=== PATIENT | female | born 1980 | race African-American/Black ===

== ENCOUNTER 2017-02-20 17:45 | Emergency (ER) | payer MEDICAID, OTHER ==
--- NOTE | 2017-02-20 18:43 | ER Document Report ---
ED Medical Screen (RME) - General Chief Complaint: Abdominal Pain Stated Complaint: STOMACH PAIN Time Seen by Provider: 02/20/17 18:41 Mode of Arrival: Ambulatory Information source: Patient TRAVEL OUTSIDE OF THE [place] IN LAST 30 DAYS: No - HPI Patient complains to provider of: abd pain Onset: Other - pt. with 1-2 day h/o generalized abdominal pain. Denies N/V/D - Related Data Allergies/Adverse Reactions: No Known Allergies Allergy (Verified 12/31/14 08:41) Home Medications: Current Home Medications No Home Medications 02/20/17 [History] Past Medical History - Past Medical History Cardiac Medical History: Denies: Hx Atrial Fibrillation, Hx Congestive Heart Failure, Hx Heart Attack , Hx Hypercholesterolemia, Hx Hypertension Pulmonary Medical History: Denies: Hx Asthma, Hx Bronchitis, Hx COPD, Hx Pneumonia Neurological Medical History: Denies: Hx Seizures Endocrine Medical History: Denies: Hx Diabetes Mellitus Type 2 Renal/ Medical History: Denies: Hx End Stage Renal Disease, Hx Renal Insufficiency GI Medical History: Denies: Hx Gastroesophageal Reflux Disease Musculoskeltal Medical History: Denies Hx Arthritis Past Surgical History: Reports: Hx Section - x2, Hx Cholecystectomy, Hx Hysterectomy. Denies: Hx Pacemaker - Immunizations Immunizations up to date: Yes Hx Diphtheria, Pertussis, Tetanus Vaccination: Yes Physical Exam - Vital signs Vitals: Temp Pulse Resp BP Pulse Ox 98.7 F 82 18 137/55 H 95 02/20/17 17:59 02/20/17 17:59 02/20/17 17:59 02/20/17 17:59 02/20/17 17:59 Course - Vital Signs Vital signs: Temp Pulse Resp BP Pulse Ox 98.7 F 82 18 137/55 H 95 02/20/17 17:59 02/20/17 17:59 02/20/17 17:59 02/20/17 17:59 02/20/17 17:59
[2017-02-20 19:07] LABS: ABSOLUTE EOSINOPHILS # (AUTO) 0.1 10^3/uL (0.0-0.6); ABSOLUTE LYMPHOCYTES (AUTO) 1.7 10^3/uL (0.5-4.7); ABSOLUTE MONOCYTES (AUTO) 0.5 10^3/uL (0.1-1.4); ABSOLUTE NEUT (AUTO) 3.6 10^3/uL (1.7-8.2); BASOPHILS % (AUTO) 0.6 % (0-2); EOSINOPHILS % (AUTO) 2.3 % (0-6); HEMATOCRIT 39.7 % (36.0-47.0); HEMOGLOBIN 13.3 g/dL (12.0-15.5); HGB HCT DIFFERENCE 0.2; MEAN CORPUSCULAR HEMOGLOBIN 28.8 pg (27.0-33.4); MEAN CORPUSCULAR HGB CONC 33.6 g/dL (32.0-36.0); MEAN CORPUSCULAR VOLUME 86 fl (80-97); MONOCYTES % (AUTO) 8.6 % (3-13); RED BLOOD COUNT 4.64 10^6/uL (3.72-5.28); RED CELL DISTRIBUTION WIDTH 14.3 % (11.5-14.0); SEGMENTED NEUTROPHILS % (AUTO) 60.5 % (42-78); WHITE BLOOD COUNT 5.9 10^3/uL (4.0-10.5)
[2017-02-20 19:14] LABS: APPEARANCE,URINE CLEAR; BILIRUBIN,URINE NEGATIVE (NEGATIVE); GLUCOSE, URINE NEGATIVE (NEGATIVE); KETONES,URINE NEGATIVE (NEGATIVE); LEUKOCYTE ESTERASE,URINE NEGATIVE (NEGATIVE); NITRITE,URINE NEGATIVE (NEGATIVE); PROTEIN,URINE 30 mg/dL (NEGATIVE); URINE SPECIFIC GRAVITY 1.027
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
[2017-02-20 19:22] LABS: ALANINE AMINOTRANSFERASE 33 U/L (9-52); ALBUMIN 4.4 g/dL (3.5-5.0); ALKALINE PHOSPHATASE 68 U/L (38-126); ANION GAP 13 (5-19); ASPARTATE AMINO TRANSFERASE 23 U/L (14-36); BILIRUBIN,DIRECT 0.3 mg/dL (0.0-0.4); BILIRUBIN,TOTAL 0.4 mg/dL (0.2-1.3); BLOOD UREA NITROGEN 12 mg/dL (7-20); CALCIUM 9.5 mg/dL (8.4-10.2); CARBON DIOXIDE 28 mmol/L (22-30); CHLORIDE 106 mmol/L (98-107); CREATININE RESULT 1.03 mg/dL (0.52-1.25); GLUCOSE 85 mg/dL (75-110); LIPASE 92.4 U/L (23-300); POTASSIUM 4.1 mmol/L (3.6-5.0); SODIUM 146.5 mmol/L (137-145); TOTAL PROTEIN 7.2 g/dL (6.3-8.2)
[2017-02-20] MEDS ORDERED: METOCLOPRAMIDE HCL ORAL SOLN 10 MG/10 ML UDCUP PO ONE (19:26)
[2017-02-20] MEDS ORDERED: LIDOCAINE 2% VISCOUS SOLN 20 ML UDCUP PO ONE (19:26)
[2017-02-20] MEDS ORDERED: MAG HYDROX/AL HYDROX/SIMETH SUSP 30 ML UDCUP PO ONE (19:26)
--- NOTE | 2017-02-20 19:55 | RADIOLOGY REPORT (SQ) ---
EXAM DESCRIPTION: ACUTE ABDOMEN SERIES COMPLETED DATE/TIME: 02/20/2017 7:46 pm REASON FOR STUDY: abd pain COMPARISON: None. NUMBER OF VIEWS: Three views. TECHNIQUE: Frontal chest, supine abdomen and upright/decubitus abdomen radiographic images acquired. LIMITATIONS: None. FINDINGS: CHEST: Lungs clear of infiltrates. FREE AIR: None. No abnormal gas collections. BOWEL GAS PATTERN: Nonobstructive pattern. No dilated loops or air fluid levels. CALCIFICATIONS: No suspicious calcifications. HARDWARE: Multiple surgical clips are identified in the right upper quadrant. SOFT TISSUES: No gross mass or suggestion of organomegaly. BONES: No acute fracture. No worrisome bone lesions. OTHER: No other significant finding. IMPRESSION: NO RADIOGRAPHIC EVIDENCE FOR ACUTE ABDOMINAL DISEASE. TECHNICAL DOCUMENTATION: JOB ID: [id number] [employer]- All Rights Reserved
[2017-02-20 20:59] VITALS: BP 139/62
== END 2017-02-20 20:57 | disposition home or self-care (01) ==
LOC: ER 17:45
DX: R10.13 Epigastric pain (principal); K29.70 Gastritis, unspecified, without bleeding; R11.0 Nausea; Z90.49 Acquired absence of other specified parts of digestive tract; Z90.710 Acquired absence of both cervix and uterus
CPT/HCPCS: 99284; 36415; 83690; 85025; 81025; 80053; 81001; 74022; J3490

== ENCOUNTER → 2017-05-20 | Outpatient (CLI) | payer MEDICAID ==
--- NOTE | 2017-05-20 11:13 | WOMENS IMAGING REPORT ---
EXAM DESCRIPTION: U/S THYROID/ST TIS HEAD NECK COMPLETED DATE/TIME: 05/20/2017 11:03 am REASON FOR STUDY: NONTOXIC GOITER E04.9 NONTOXIC GOITER, UNSPECIFIED COMPARISON: None. TECHNIQUE: Dynamic and static horne-scale images acquired of the thyroid gland. Selected additional c olor/power Doppler images recorded. All images stored to PACS. LIMITATIONS: None. FINDINGS: RIGHT LOBE: Normal size. Homogeneous echotexture. 5 mm cystic nodule. LEFT LOBE: Normal size. Homogeneous echotexture. 5 mm cystic nodule. ISTHMUS: Normal size. Homogeneous echotexture. No cystic or solid masses. OTHER: No other significant finding. IMPRESSION: Small colloid cysts. TECHNICAL DOCUMENTATION: JOB ID: [id number] [employer]- All Rights Reserved
== END ==
LOC: WI 09:25
PROVIDERS: ATTEND Internal Medicine
DX: E04.9 Nontoxic goiter, unspecified (principal)
CPT/HCPCS: 76536

== ENCOUNTER → 2017-11-22 | Outpatient (CLI) | payer MEDICAID ==
--- NOTE | 2017-11-22 15:36 | RADIOLOGY REPORT (SQ) ---
EXAM DESCRIPTION: LUMBAR SPINE COMPLETE COMPLETED DATE/TIME: 11/22/2017 3:19 pm REASON FOR STUDY: ACUTE LOW BACK PAIN WITHOUT SCIATICA, UNSPEC BACK PAIN LATERALITY COMPARISON: None. NUMBER OF VIEWS: Five views including obliques. TECHNIQUE: AP, lateral, oblique, and sacral radiographic images acquired of the lumbar spine. LIMITATIONS: None. FINDINGS: MINERALIZATION: Normal. SEGMENTATION: Normal. No transitional anatomy. ALIGNMENT: Normal. VERTEBRAE: Maintained height. No fracture or worrisome bone lesion. DISCS: Preserved height. No significant osteophytes or end plate irregularity. POSTERIOR ELEMENTS: Pedicles and facets are intact. No pars defect or posterior arch defects. HARDWARE: None in the spine. PARASPINAL SOFT TISSUES: Normal. PELVIS: Intact as visualized. No fractures or worrisome bone lesions. SI joints intact. OTHER: No other significant finding. IMPRESSION: NORMAL 5 VIEW LUMBAR SPINE. TECHNICAL DOCUMENTATION: JOB ID: [id number] [employer]- All Rights Reserved Reading location - IP/workstation name: [email or web address]
== END ==
LOC: OD 15:00
PROVIDERS: ATTEND Family Medicine
DX: M54.5 Low back pain (principal)
CPT/HCPCS: 72110

== ENCOUNTER 2018-03-01 10:12 | Emergency (ER) | payer OTHER, MEDICAID ==
[2018-03-01] MEDS ORDERED: ONDANSETRON 4 MG TAB.RAPDIS PO ONE (10:31)
[2018-03-01] MEDS ORDERED: ACETAMINOPHEN 325 MG TABLET PO ONE (10:31)
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
[2018-03-01 11:39] VITALS: BP 149/60
== END 2018-03-01 11:41 | disposition home or self-care (01) ==
LOC: ER 10:12
DX: S43.401A Unspecified sprain of right shoulder joint, initial encounter (principal); S73.101A Unspecified sprain of right hip, initial encounter; R51 Headache; M54.89 Other dorsalgia; V49.40XA Driver injured in collision with unspecified motor vehicles in traffic accident, initial encounter; R11.0 Nausea; M16.11 Unilateral primary osteoarthritis, right hip
CPT/HCPCS: 99284; 73502; 73030; 72070; S0119

== ENCOUNTER 2018-05-30 12:54 | Emergency (ER) | payer MEDICAID, OTHER ==
[2018-05-30] MEDS ORDERED: NORMAL SALINE 1000 ML 1,000 ML IV ONE (13:26)
[2018-05-30 13:55] LABS: ABSOLUTE LYMPHOCYTES (AUTO) 1.5 10^3/uL (0.5-4.7); ABSOLUTE MONOCYTES (AUTO) 0.4 10^3/uL (0.1-1.4); ABSOLUTE NEUT (AUTO) 2.3 10^3/uL (1.7-8.2); BASOPHILS % (AUTO) 0.9 % (0-2); EOSINOPHILS % (AUTO) 1.1 % (0-6); HEMATOCRIT 40.8 % (36.0-47.0); HEMOGLOBIN 13.7 g/dL (12.0-15.5); LYMPHOCYTES % (AUTO) 34.9 % (13-45); MEAN CORPUSCULAR HEMOGLOBIN 28.4 pg (27.0-33.4); MEAN CORPUSCULAR HGB CONC 33.7 g/dL (32.0-36.0); MEAN CORPUSCULAR VOLUME 84 fl (80-97); MONOCYTES % (AUTO) 9.4 % (3-13); PLATELET COUNT 204 10^3/uL (150-450); RED BLOOD COUNT 4.83 10^6/uL (3.72-5.28); RED CELL DISTRIBUTION WIDTH 13.5 % (11.5-14.0); SEGMENTED NEUTROPHILS % (AUTO) 53.7 % (42-78); TOTAL CELLS COUNTED % (AUTO) 100 %; WHITE BLOOD COUNT 4.3 10^3/uL (4.0-10.5)
[2018-05-30 14:45] LABS: ALANINE AMINOTRANSFERASE 48 U/L (9-52); ALBUMIN 4.3 g/dL (3.5-5.0); ALKALINE PHOSPHATASE 68 U/L (38-126); ANION GAP 10 (5-19); ASPARTATE AMINO TRANSFERASE 28 U/L (14-36); BILIRUBIN,DIRECT 0.2 mg/dL (0.0-0.4); BILIRUBIN,TOTAL 0.5 mg/dL (0.2-1.3); BLOOD UREA NITROGEN 11 mg/dL (7-20); CALCIUM 9.9 mg/dL (8.4-10.2); CARBON DIOXIDE 27 mmol/L (22-30); CHLORIDE 108 mmol/L (98-107); GLUCOSE 88 mg/dL (75-110); POTASSIUM 3.9 mmol/L (3.6-5.0); TOTAL PROTEIN 6.8 g/dL (6.3-8.2)
--- NOTE | 2018-05-30 14:47 | RADIOLOGY REPORT (SQ) ---
EXAM DESCRIPTION: KUB/ABDOMEN (SINGLE VIEW) COMPLETED DATE/TIME: 05/30/2018 2:13 pm REASON FOR STUDY: Abdominal pain COMPARISON: 02/20/2017 NUMBER OF VIEWS: One view. TECHNIQUE: Supine radiographic image of the abdomen acquired. LIMITATIONS: None. FINDINGS: BOWEL GAS PATTERN: Normal bowel gas pattern. No dilated loops. CALCIFICATIONS: No suspicious calcifications. SOFT TISSUES: No gross mass or suggestion of organomegaly. HARDWARE: Surgical clips in the gallbladder fossa. BONES: No acute fracture. No worrisome bone lesions. OTHER: No other significant finding. IMPRESSION: NO RADIOGRAPHIC EVIDENCE FOR ACUTE ABDOMINAL DISEASE. TECHNICAL DOCUMENTATION: JOB ID: [id number] [employer]- All Rights Reserved Reading location - IP/workstation name: [email or web address]
--- NOTE | 2018-05-30 15:28 | ER Document Report ---
ED General - General Chief Complaint: Weakness Stated Complaint: BACK PAIN Time Seen by Provider: 05/30/18 13:25 Primary Care Provider: PEG MERCEDES DO [Primary Care Provider] - Follow up as needed TRAVEL OUTSIDE OF THE [place] IN LAST 30 DAYS: No - HPI Patient complains to provider of: Dehydrated feeling unwell Notes: Patient coming in for feeling dehydrated feeling unwell Ongoing since this morning. Patient states that she recently had a gastric sleeve placed by the doctor at [place] states that she has been eating and drinking fine denies any vomiting or diarrhea however this today felt like she was dehydrated. Patient states that she drinks water mostly no carbonated sodas. Patient upon my evaluation has been seen by a GI doctor and had labs ordered along with IV fluids. Patient states that she currently feels much better patient resting comfortably no signs of any obvious distress. Denies any chest pain headaches fevers nausea vomiting fever chills diarrhea - Related Data Allergies/Adverse Reactions: No Known Allergies Allergy (Verified 03/01/18 10:14) Past Medical History - Social History Smoking Status: Never Smoker Chew tobacco use (# tins/day): No Frequency of alcohol use: None Drug Abuse: None Family History: DM, Hyperlipidemia, Hypertension, Other - gout Patient has suicidal ideation: No Patient has homicidal ideation: No - Past Medical History Cardiac Medical History: Denies: Hx Atrial Fibrillation, Hx Congestive Heart Failure, Hx Heart Attack, Hx Hypercholesterolemia, Hx Hypertension Pulmonary Medical History: Denies: Hx Asthma, Hx Bronchitis, Hx COPD, Hx Pneumonia Neurological Medical History: Denies: Hx Seizures Endocrine Medical History: Denies: Hx Diabetes Mellitus Type 2 Renal/ Medical History: Denies: Hx End Stage Renal Disease, Hx Peritoneal Dialysis, Hx Renal Insufficiency GI Medical History: Denies: Hx Gastroesophageal Reflux Disease Musculoskeletal Medical History: Denies Hx Arthritis Psychiatric Medical History: Reports: Hx Anxiety Past Surgical History: Reports: Hx Section - x2, Hx Cholecystectomy, Hx Hysterectomy. Denies: Hx Pacemaker - Immunizations Immunizations up to date: Yes Hx Diphtheria, Pertussis, Tetanus Vaccination: Yes Review of Systems - Review of Systems Constitutional: Weakness - Feeling unwell EENT: No symptoms reported Cardiovascular: No symptoms reported Respiratory: No symptoms reported Gastrointestinal: No symptoms reported Genitourinary: No symptoms reported Female Genitourinary: No symptoms reported Musculoskeletal: No symptoms reported Skin: No symptoms reported Hematologic/Lymphatic: No symptoms reported Neurological/Psychological: No symptoms reported Physical Exam - Vital signs Vitals: Temp Pulse Resp BP Pulse Ox 98.4 F 76 12 112/63 98 05/30/18 12:59 05/30/18 12:59 05/30/18 12:59 05/30/18 12:59 05/30/18 12:59 Interpretation: Normal - General General appearance: Appears well, Alert - HEENT Head: Normocephalic, Atraumatic Eyes: Normal Pupils: PERRL - Respiratory Respiratory status: No respiratory distress Chest status: Nontender Breath sounds: Normal Chest palpation: Normal - Cardiovascular Rhythm: Regular Heart sounds: Normal auscultation Murmur: No - Abdominal Inspection: Normal Distension: No distension Bowel sounds: Normal Tenderness: Nontender Organomegaly: No organomegaly - Back Back: Normal, Nontender - Extremities General upper extremity: Normal inspection, Nontender, Normal color, Normal ROM, Normal temperature General lower extremity: Normal inspection, Nontender, Normal color, Normal ROM, Normal temperature, Normal weight bearing. No: Caryn's sign - Neurological Neuro grossly intact: Yes Cognition: Normal Orientation: AAOx4 [place] Coma Scale Eye Opening: Spontaneous [place] Coma Scale Verbal: Oriented [place] Coma Scale Motor: Obeys Commands Marifer Coma Scale Total: 15 Speech: Normal Motor strength normal: LUE, RUE, LLE, RLE Sensory: Normal - Psychological Associated symptoms: Normal affect, Normal mood - Skin Skin Temperature: Warm Skin Moisture: Dry Skin Color: Normal Course - Re-evaluation Re-evalutation: 05/30/18 16:46 labs exam does not show any critical values at this time. Patient will be discharged home to follow-up primary care physician. - Vital Signs Vital signs: Temp Pulse Resp BP Pulse Ox 98.1 F 70 18 114/62 100 05/30/18 15:45 05/30/18 15:45 05/30/18 15:45 05/30/18 15:45 05/30/18 15:45 - Laboratory Result Diagrams: 05/30/18 13:35 05/30/18 14:15 Laboratory results interpreted by me: 05/30/18 14:15 Chloride 108 H Est GFR (Non-Af Amer) 56 L Discharge - Discharge Clinical Impression: Weakness, Feeling unwell Condition: Good Disposition: HOME, SELF-CARE Instructions: Dizziness ([facility]), Weakness ([facility]) Additional Instructions: Your evaluation today does not show any critical pathology would recommend drinking plenty of fluids such as water and diet Powerade. Return to the ER if your symptoms worsen follow-up with your primary care physician as needed. Referrals: PEG MERCEDES, [Primary Care Provider] - Follow up as needed
[2018-05-30 16:17] VITALS: BP 114/62
== END 2018-05-30 15:45 | disposition home or self-care (01) ==
LOC: ER 12:54
DX: R53.1 Weakness (principal); M54.9 Dorsalgia, unspecified; E86.0 Dehydration; Z90.49 Acquired absence of other specified parts of digestive tract; Z90.710 Acquired absence of both cervix and uterus
CPT/HCPCS: 99283; 96360; 36415; 87086; 85025; 80053; 74018; J7030

== ENCOUNTER → 2018-09-06 | Outpatient (CLI) | payer MEDICAID ==
[2018-09-06 15:12] LABS: ABSOLUTE EOSINOPHILS # (AUTO) 0.1 10^3/uL (0.0-0.6); ABSOLUTE LYMPHOCYTES (AUTO) 1.6 10^3/uL (0.5-4.7); ABSOLUTE MONOCYTES (AUTO) 0.4 10^3/uL (0.1-1.4); ABSOLUTE NEUT (AUTO) 2.6 10^3/uL (1.7-8.2); BASOPHILS % (AUTO) 0.5 % (0-2); HEMATOCRIT 37.4 % (36.0-47.0); HEMOGLOBIN 12.5 g/dL (12.0-15.5); LYMPHOCYTES % (AUTO) 33.3 % (13-45); MEAN CORPUSCULAR HEMOGLOBIN 28.1 pg (27.0-33.4); MEAN CORPUSCULAR HGB CONC 33.4 g/dL (32.0-36.0); MEAN CORPUSCULAR VOLUME 84 fl (80-97); MONOCYTES % (AUTO) 8.6 % (3-13); PLATELET COUNT 210 10^3/uL (150-450); RED BLOOD COUNT 4.44 10^6/uL (3.72-5.28); RED CELL DISTRIBUTION WIDTH 14.3 % (11.5-14.0); SEGMENTED NEUTROPHILS % (AUTO) 55.6 % (42-78); TOTAL CELLS COUNTED % (AUTO) 100 %; WHITE BLOOD COUNT 4.8 10^3/uL (4.0-10.5)
[2018-09-06 15:34] LABS: ALANINE AMINOTRANSFERASE 22 U/L (9-52); ALKALINE PHOSPHATASE 61 U/L (38-126); ANION GAP 10 (5-19); ASPARTATE AMINO TRANSFERASE 21 U/L (14-36); BILIRUBIN,DIRECT 0.2 mg/dL (0.0-0.4); BILIRUBIN,TOTAL 0.6 mg/dL (0.2-1.3); BLOOD UREA NITROGEN 9 mg/dL (7-20); CALCIUM 9.8 mg/dL (8.4-10.2); CARBON DIOXIDE 30 mmol/L (22-30); CHLORIDE 105 mmol/L (98-107); GLUCOSE 78 mg/dL (75-110); SODIUM 144.9 mmol/L (137-145); TOTAL PROTEIN 6.6 g/dL (6.3-8.2)
== END ==
LOC: OD 14:40
PROVIDERS: ATTEND Nurse Practitioner Family
DX: M79.604 Pain in right leg (principal); R73.03 Prediabetes; E66.9 Obesity, unspecified
CPT/HCPCS: 36415; 80053; 82607; 84425; 85025

== ENCOUNTER → 2018-09-25 | Outpatient (CLI) | payer MEDICAID ==
[2018-09-25 15:56] LABS: CHLAM PCR NOT DETECTED (NOT DETECT)
== END ==
LOC: OD 13:11
PROVIDERS: ATTEND Nurse Practitioner Acute Care
DX: R30.0 Dysuria (principal)
CPT/HCPCS: 87086; 87088; 87186; 87491; 87591

== ENCOUNTER 2018-11-12 09:48 | Emergency (ER) | payer MEDICAID ==
--- NOTE | 2018-11-12 10:23 | ER Document Report ---
ED GI/ - General Chief Complaint: Urinary Problem Stated Complaint: PAINFUL URINATION Time Seen by Provider: 11/12/18 09:58 Primary Care Provider: JENNIFER GRAY NP [Primary Care Provider] - Follow up as needed Mode of Arrival: Ambulatory Information source: Patient Notes: 38-year-old female presented to ED for complaint of urgency frequency and burning with urination. She states it starts this morning. She has had a past partial hysterectomy that the only medical history. She states she does not smoke or drink she does smoke pot works. She is alert oriented respirations regular and unlabored speaking in full sentences. TRAVEL OUTSIDE OF THE [place] IN LAST 30 DAYS: No - HPI Patient complains to provider of: Other - Urinary frequency urgency and burning Onset: This morning Timing/Duration: Gradual Quality of pain: Burning, Pressure Severity at maximum: Mild Severity in ED: Mild Pain Level: 1 Vaginal bleeding (Compared to normal period): None Associated symptoms: Urinary frequency, Urinary urgency, Other - And was her nation Exacerbated by: Other Relieved by: Denies - Urination Similar symptoms previously: Yes Recently seen / treated by doctor: No - Related Data Allergies/Adverse Reactions: No Known Allergies Allergy (Verified 03/01/18 10:14) Past Medical History - General Information source: Patient - Social History Smoking Status: Never Smoker Frequency of alcohol use: None Drug Abuse: Marijuana Family History: DM, Hyperlipidemia, Hypertension, Other - gout Patient has suicidal ideation: No Patient has homicidal ideation: No - Past Medical History Cardiac Medical History: Reports: None Pulmonary Medical History: Reports: None EENT Medical History: Reports: None Neurological Medical History: Reports: None Endocrine Medical History: Reports: None Renal/ Medical History: Reports: None Malignancy Medical History: Reports: None GI Medical History: Reports: None Musculoskeletal Medical History: Reports None Skin Medical History: Reports None Psychiatric Medical History: Reports: Hx Anxiety Traumatic Medical History: Reports: None Infectious Medical History: Reports: None Past Surgical History: Reports: Hx Section - x2, Hx Cholecystectomy, Hx Hysterectomy - Immunizations Immunizations up to date: Yes Hx Diphtheria, Pertussis, Tetanus Vaccination: Yes Review of Systems - Review of Systems Constitutional: No symptoms reported EENT: No symptoms reported Cardiovascular: No symptoms reported Respiratory: No symptoms reported Gastrointestinal: No symptoms reported Genitourinary: Burning, Frequency, Urgency Female Genitourinary: No symptoms reported Musculoskeletal: No symptoms reported Skin: No symptoms reported Hematologic/Lymphatic: No symptoms reported Neurological/Psychological: No symptoms reported -: Yes All other systems reviewed and negative Physical Exam - Vital signs Vitals: Temp Pulse Resp BP Pulse Ox 98.1 F 67 20 134/47 H 98 11/12/18 09:55 11/12/18 09:55 11/12/18 09:55 11/12/18 09:55 11/12/18 09:55 Interpretation: Normal - General General appearance: Appears well, Alert - HEENT Head: Normocephalic, Atraumatic Eyes: Normal Pupils: PERRL - Respiratory Respiratory status: No respiratory distress Chest status: Nontender Breath sounds: Normal Chest palpation: Normal - Cardiovascular Rhythm: Regular Heart sounds: Normal auscultation Murmur: No - Abdominal Inspection: Normal Distension: No distension Bowel sounds: Normal Tenderness: Nontender Organomegaly: No organomegaly - Genitourinary Notes: Patient states it pressley every time she urinates no physical symptoms noted. - Back Back: Normal, Nontender - Extremities General upper extremity: Normal inspection, Nontender, Normal color, Normal ROM, Normal temperature General lower extremity: Normal inspection, Nontender, Normal color, Normal ROM, Normal temperature, Normal weight bearing. No: Caryn's sign - Neurological Neuro grossly intact: Yes Cognition: Normal Orientation: AAOx4 [place] Coma Scale Eye Opening: Spontaneous [place] Coma Scale Verbal: Oriented [place] Coma Scale Motor: Obeys Commands [place] Coma Scale Total: 15 Speech: Normal Motor strength normal: LUE, RUE, LLE, RLE Sensory: Normal - Psychological Associated symptoms: Normal affect, Normal mood - Skin Skin Temperature: Warm Skin Moisture: Dry Skin Color: Normal Course - Re-evaluation Re-evalutation: 11/12/18 11:25 Urine was positive for urinary tract infection. He will be sent for culture. Patient has been treated with Rocephin 1 g IM in the emergency room and discharged home with prescription for Keflex. Patient was also treated with Pyridium and a prescription for Pyridium for her discomfort. Patient was instructed to follow-up with her primary care to ensure that the UTI has cleared. - Vital Signs Vital signs: Temp Pulse Resp BP Pulse Ox 98.9 F 68 20 122/67 98 11/12/18 11:26 11/12/18 11:26 11/12/18 09:55 11/12/18 11:26 11/12/18 11:26 - Laboratory Laboratory results interpreted by me: 11/12/18 10:02 Urine Protein >=500 H Urine Blood LARGE H Urine Urobilinogen 2.0 H Ur Leukocyte Esterase MODERATE H Discharge - Discharge Clinical Impression: UTI (urinary tract infection) Qualifiers: Urinary tract infection type: acute cystitis Hematuria presence: with hematuria Qualified Code(s): N30.01 - Acute cystitis with hematuria Condition: Stable Disposition: HOME, SELF-CARE Additional Instructions: URINARY TRACT INFECTION: Your evaluation indicates that you have a urinary tract infection. This is due to germs growing in the bladder. This is a common problem. This infection usually responds quickly to antibiotics. Your antibiotic should be taken exactly as prescribed. Drink plenty of fluids -- three to four quarts a day. Occasionally, a bladder anesthetic will be prescribed to help stop the feeling of urgency until the antibiotic has a chance to clear the infection. This may cause your urine to be dark orange. Certain urine infections require a culture. If the doctor obtained a culture, the results will be back in two days. You should call to see if a change in treatment is needed. A repeat urinalysis after you finish treatment is often recommended. The physician will let you know if further testing is required. Call the doctor if you develop fever, chills, flank pain, inability to urinate, or blood in the urine. ANTIBIOTIC THERAPY: You have been given an antibiotic prescription. It's important that you take all the medication, unless instructed otherwise by your physician. Failure to complete the entire course can result in relapse of your condition. Common side effects of antibiotics include nausea, intestinal cramping, or diarrhea. Women may develop vaginal yeast infections, and babies can get yeast (thrush) in the mouth following the use of antibiotics. Contact your physician if you develop significant side effects from this medication. Allergy to this antibiotic can result in hives, wheezing, faintness, or itching. If symptoms of allergy occur, stop the medication and call the doctor. Rocephin You have been given an injection of an antibiotic called Rocephin (ceftriaxone). Sometimes the injection must be combined with antibiotic pills. For some infections, such as an uncomplicated ear infection, Rocephin provides all the antibiotic that's needed. The antibiotic will be in your body for about two days. For serious infections, we usually repeat doses of Rocephin daily. Side effects are very unusual following a shot. Women may develop vaginal yeast infections, and babies can get yeast (thrush) in the mouth following the use of antibiotics. Contact your physician if you have symptoms with this medication. Allergy to this antibiotic can result in hives, wheezing, faintness, or itching. If symptoms of allergy occur, call the doctor at once. CEPHALEXIN: The antibiotic you've been prescribed is a member of the cephalosporin class. This type of antibiotic covers a wide variety of infections, including those of the skin, lungs, and urinary tract. It's useful for staph infections. This antibiotic is slightly similar to the penicillin family. In rare cases, a person who is allergic to penicillin will also be allergic to this medication. If you have had a severe allergic reaction to penicillin, and have not taken this antibiotic since that time, notify your doctor. Antibiotics which cover many germs ("broad spectrum" antibiotics) are more likely to cause diarrhea or "yeast" infections. Women prone to vaginal yeast problems may suffer an attack after taking this antibiotic. In infants, oral thrush (white spots "stuck" on the cheek) or yeast diaper rash may result. See your doctor if these problems occur. Call at once if you develop itching, hives, shortness of breath, or lightheadedness. URINARY ANESTHETIC AGENT: You have been given a medication (Pyridium) for urinary tract discomfort. This medicine numbs the lining of the bladder and urethra, resulting in less pain, burning, and urgency. You may take it as needed, according to instructions. When the symptoms resolve, you can stop this medication (be sure to continue any other medications the doctor has given you). This medicine turns the urine a dark orange. It may stain underwear. Occasionally, it can cause nausea. Return for evaluation if there are any unexpected effects, such as itching, hives, or shortness of breath. FOLLOW-UP CARE: If you have been referred to a physician for follow-up care, call the physicians office for an appointment as you were instructed or within the next two days. If you experience worsening or a significant change in your symptoms, notify the physician immediately or return to the Emergency Department at any time for re-evaluation. Prescriptions: Cephalexin Monohydrate [Keflex 500 mg Capsule] 500 mg PO Q6H 5 Days capsule Phenazopyridine HCl [Pyridium 100 Mg Tablet] 100 mg PO TIDP PRN #14 tablet PRN Reason: Forms: Elevated Blood Pressure, Return to Work Referrals: JENNIFER GRAY NP [Primary Care Provider] - Follow up as needed
[2018-11-12 10:57] LABS: APPEARANCE,URINE TURBID; BILIRUBIN,URINE NEGATIVE (NEGATIVE); CALCIUM OXALATE CRYSTALS,URINE FEW /HPF; COLOR,URINE YELLOW; GLUCOSE, URINE NEGATIVE (NEGATIVE); KETONES,URINE NEGATIVE (NEGATIVE); LEUKOCYTE ESTERASE,URINE MODERATE (NEGATIVE); NITRITE,URINE NEGATIVE (NEGATIVE); PROTEIN,URINE >=500 mg/dL (NEGATIVE)
[2018-11-12] MEDS ORDERED: LIDOCAINE 1% INJ-PF (10 MG/ML) 30 ML SDV INJ ONE (11:17)
[2018-11-12] MEDS ORDERED: CEFTRIAXONE INJ 1000 MG VIAL IM ONE (11:17)
[2018-11-12] MEDS ORDERED: PHENAZOPYRIDINE HCL 100 MG TABLET PO ONE (11:19)
[2018-11-12 11:27] VITALS: BP 122/67
== END 2018-11-12 11:42 | disposition home or self-care (01) ==
LOC: ER 09:48
DX: N30.01 Acute cystitis with hematuria (principal)
CPT/HCPCS: 99283; 96372; 87086; 81001; J3490 ×2; J0696

== ENCOUNTER → 2019-01-09 | Outpatient (CLI) | payer MEDICAID ==
[2019-01-09 16:06] LABS: T.VAGINALIS (WET MOUNT) NO TRICHOMONAS SEEN; WBCS (WET MOUNT) 1+ WBCS SEEN; YEAST (WET MOUNT) NO YEAST SEEN
[2019-01-09 16:07] LABS: BACTERIA (WET MOUNT) 4+ BACTERIA SEEN; EPITHELIALS (WET MOUNT) 3+ EPITHELIALS SEEN
[2019-01-09 17:37] LABS: CHLAM PCR NOT DETECTED (NOT DETECT)
== END ==
LOC: LAB 16:00
PROVIDERS: ATTEND Nurse Practitioner Family
DX: N30.90 Cystitis, unspecified without hematuria (principal); R30.0 Dysuria
CPT/HCPCS: 87086; 87210; 87491; 87591

== ENCOUNTER 2019-03-05 14:49 | Emergency (ER) | payer MEDICAID ==
[2019-03-05 14:59] VITALS: BP 117/56
[2019-03-05] MEDS ORDERED: CIPROFLOXACIN HCL/DEXAMETH OTIC DROP 7.5 ML AS ONE (15:33)
--- NOTE | 2019-03-05 15:39 | ER Document Report ---
HPI - HPI Time Seen by Provider: 03/05/19 15:26 Pain Level: 3 Context: Patient is a 38-year-old female who presents emergency department with a chief complaint of left ear pain. Patient reports she is had left ear pain and drainage for about 4 days. Patient denies fever. Patient denies sore throat, runny nose or nasal congestion. Patient denies headache. Patient reports the outer ear is extremely tender to touch. - REPRODUCTIVE Reproductive: DENIES: : Past Medical History - General Information source: Patient - Social History Smoking Status: Never Smoker Frequency of alcohol use: None Drug Abuse: None Lives with: Family Family History: DM, Hyperlipidemia, Hypertension, Other - gout Patient has suicidal ideation: No Patient has homicidal ideation: No - Past Medical History Cardiac Medical History: Reports: None Denies: Hx Atrial Fibrillation, Hx Congestive Heart Failure, Hx Heart Attack, Hx Hypercholesterolemia, Hx Hypertension Pulmonary Medical History: Reports: None Denies: Hx Asthma, Hx Bronchitis, Hx COPD, Hx Pneumonia EENT Medical History: Reports: None Neurological Medical History: Reports: None. Denies: Hx Seizures Endocrine Medical History: Reports: None. Denies: Hx Diabetes Mellitus Type 2 Renal/ Medical History: Reports: None. Denies: Hx End Stage Renal Disease, Hx Peritoneal Dialysis, Hx Renal Insufficiency Malignancy Medical History: Reports: None GI Medical History: Reports: None. Denies: Hx Gastroesophageal Reflux Disease Musculoskeletal Medical History: Reports None, Denies Hx Arthritis Psychiatric Medical History: Reports: Hx Anxiety Past Surgical History: Reports: Hx Section - x2, Hx Cholecystectomy, Hx Hysterectomy. Denies: Hx Pacemaker - Immunizations Immunizations up to date: Yes Hx Diphtheria, Pertussis, Tetanus Vaccination: Yes Vertical Provider Document - CONSTITUTIONAL Agree With Documented VS: Yes Exam Limitations: No Limitations General Appearance: No Apparent Distress - INFECTION CONTROL TRAVEL OUTSIDE OF THE [place] IN LAST 30 DAYS: No - HEENT HEENT: Atraumatic, Normocephalic, PERRLA Notes: Right external ear unremarkable without edema, tenderness to the pinna, tragus or mastoid. TM is slightly erythematous without bulging. Left ear does reveal tenderness to the tragus. No mastoid tenderness. The external ear canal is edematous, unable to visualize the TM. - NECK Neck: Normal Inspection - RESPIRATORY Respiratory: Breath Sounds Normal, No Respiratory Distress - CARDIOVASCULAR Cardiovascular: Regular Rate, Regular Rhythm - GI/ABDOMEN Gastrointestinal: Abdomen Soft, Abdomen Non-Tender, Normal Bowel Sounds - BACK Back: Normal Inspection - MUSCULOSKELETAL/EXTREMETIES Musculoskeletal/Extremeties: FROM, Non-Tender - NEURO Level of Consciousness: Awake, Alert, Appropriate - DERM Integumentary: Warm, Dry, No Rash Course - Re-evaluation Re-evalutation: 03/05/19 15:39 We will treat the patient for an otitis externa. We will place an ear wick and due to the edema within the ear canal. 03/05/19 15:58 Ear wick placed into left ear canal. Patient given first dose of antibiotic drops here in the emergency department. Patient instructed to use 4 drops in the left ear twice a day for 1 week. - Vital Signs Vital signs: Temp Pulse Resp BP Pulse Ox 97.9 F 76 20 117/56 L 100 03/05/19 14:53 03/05/19 14:53 03/05/19 14:53 03/05/19 14:53 03/05/19 14:53 Discharge - Discharge Clinical Impression: Otitis externa Qualifiers: Otitis externa type: unspecified type Chronicity: acute Laterality: left Qualified Code(s): H60.502 - Unspecified acute noninfective otitis externa, left ear Condition: Stable Disposition: HOME, SELF-CARE Additional Instructions: *Today was seen in emergency department for left ear pain. You do have an otitis externa which is an infection of the outer ear canal. You have had a ear wick placed into your ear to help absorb the medication. This will fall out on its own. This tends to fall out when the swelling has improved. Once it falls out typically do not need to have the ear wick replaced. Please use the antibiotic drops as prescribed which is 4 drops to the left ear twice a day for 1 week. Take Tylenol and ibuprofen as needed for pain. Please return to the emergency department if you develop fever, increasing swelling, severe headache, stiff neck or decrease in hearing. Otitis Externa You have otitis externa -- an infection of the outer ear canal. This can be very painful. It's sometimes called "swimmer's ear," because it often occurs after prolonged water exposure. Many things, such as earwax and dirt in the ear, can contribute to it. The usual treatment is antibiotic/antiinflammatory ear drops. Occasionally, a wick will be placed in the ear to draw in the medicine. If the infection is severe, an oral antibiotic may be prescribed. Pain medication is often needed. Avoid getting water in the ear. Outer ear infections often take longer to heal than you might expect. Some tenderness and ache in the ear may persist for about two weeks. See your physician if you fail to improve as expected. Call the doctor at once if you develop fever, increasing swelling (particularly if it makes your ear "poke out"), severe headache, stiff neck, or decreased hearing. Forms: Return to Work Referrals: [employer] [Primary Care Provider] - Follow up as needed
== END 2019-03-05 15:57 | disposition home or self-care (01) ==
LOC: ER 14:49
DX: H60.502 Unspecified acute noninfective otitis externa, left ear (principal); H92.02 Otalgia, left ear; H92.12 Otorrhea, left ear
CPT/HCPCS: 99282; J3490

== ENCOUNTER → 2019-09-17 | Outpatient (CLI) | payer MEDICAID ==
[2019-09-17 10:30] LABS: ABSOLUTE EOSINOPHILS # (AUTO) 0.1 10^3/uL (0.0-0.6); ABSOLUTE LYMPHOCYTES (AUTO) 0.9 10^3/uL (0.5-4.7); ABSOLUTE MONOCYTES (AUTO) 0.3 10^3/uL (0.1-1.4); ABSOLUTE NEUT (AUTO) 2.5 10^3/uL (1.7-8.2); BASOPHILS % (AUTO) 0.7 % (0-2); EOSINOPHILS % (AUTO) 1.5 % (0-6); HEMATOCRIT 38.5 % (36.0-47.0); HEMOGLOBIN 13.3 g/dL (12.0-15.5); MEAN CORPUSCULAR HEMOGLOBIN 29.6 pg (27.0-33.4); MEAN CORPUSCULAR HGB CONC 34.6 g/dL (32.0-36.0); MEAN CORPUSCULAR VOLUME 85 fl (80-97); MONOCYTES % (AUTO) 8.3 % (3-13); PLATELET COUNT 193 10^3/uL (150-450); RED CELL DISTRIBUTION WIDTH 14.1 % (11.5-14.0); SEGMENTED NEUTROPHILS % (AUTO) 66.5 % (42-78); TOTAL CELLS COUNTED % (AUTO) 100 %; WHITE BLOOD COUNT 3.8 10^3/uL (4.0-10.5)
[2019-09-17 10:35] LABS: APPEARANCE,URINE SLIGHTLY-CLOUDY; BILIRUBIN,URINE NEGATIVE (NEGATIVE); COLOR,URINE YELLOW; GLUCOSE, URINE NEGATIVE (NEGATIVE); KETONES,URINE NEGATIVE (NEGATIVE); PROTEIN,URINE NEGATIVE (NEGATIVE)
[2019-09-17 10:43] LABS: INTERNATIONAL RATION (INR) 1.08
[2019-09-17 10:44] LABS: PARTIAL THROMBOPLASTIN TIME 29.8 SEC (23.5-35.8)
[2019-09-17 10:46] LABS: ALBUMIN 3.9 g/dL (3.5-5.0); ALKALINE PHOSPHATASE 60 U/L (38-126); ASPARTATE AMINO TRANSFERASE 19 U/L (14-36); BILIRUBIN,TOTAL 0.7 mg/dL (0.2-1.3); BLOOD UREA NITROGEN 14 mg/dL (7-20); CALCIUM 9.5 mg/dL (8.4-10.2); GLUCOSE 87 mg/dL (75-110); POTASSIUM 4.2 mmol/L (3.6-5.0); TOTAL PROTEIN 6.6 g/dL (6.3-8.2)
[2019-09-17 10:51] LABS: CARBON DIOXIDE 30 mmol/L (22-30); CHLORIDE 106 mmol/L (98-107)
[2019-09-17 10:52] LABS: ANION GAP 2 (5-19)
== END ==
LOC: OD 09:38
DX: Z01.812 Encounter for preprocedural laboratory examination (principal)
CPT/HCPCS: 36415; 80053; 81001; 84703; 85025; 85610; 85730

== ENCOUNTER 2019-10-29 20:46 | Emergency (ER) | payer MEDICAID ==
--- NOTE | 2019-10-29 21:40 | ER Document Report ---
ED Medical Screen (RME) - General Stated Complaint: ABDOMINAL AND BACK PAIN Time Seen by Provider: 10/29/19 21:33 Primary Care Provider: ROBLES JOSEPH [Primary Care Provider] - Follow up as needed Notes: Patient is a 39-year-old female who presents the emergency department with a chief complaint of abdominal pain. Patient states that she had a tummy tuck on October 16. Patient was instructed to take out her drain from her umbilical area when she had less than 20 cc in the bulb. Exam: Incision noted to umbilicus and lower abdomen. Slight tenderness noted. I have greeted and performed a rapid initial assessment of this patient. A comprehensive ED assessment and evaluation of the patient, analysis of test results and completion of medical decision making process will be conducted by an additional ED providers. TRAVEL OUTSIDE OF THE [place] IN LAST 30 DAYS: No - Related Data Allergies/Adverse Reactions: No Known Allergies Allergy (Verified 03/01/18 10:14) Past Medical History - Past Medical History Cardiac Medical History: Denies: Hx Atrial Fibrillation, Hx Congestive Heart Failure, Hx Heart Attack, Hx Hypercholesterolemia, Hx Hypertension Pulmonary Medical History: Denies: Hx Asthma, Hx Bronchitis, Hx COPD, Hx Pneumonia Neurological Medical History: Denies: Hx Seizures Endocrine Medical History: Denies: Hx Diabetes Mellitus Type 2 Renal/ Medical History: Denies: Hx End Stage Renal Disease, Hx Peritoneal Dialysis, Hx Renal Insufficiency GI Medical History: Denies: Hx Gastroesophageal Reflux Disease Musculoskeltal Medical History: Denies Hx Arthritis Psychiatric Medical History: Reports: Hx Anxiety Past Surgical History: Reports: Hx Section - x2, Hx Cholecystectomy, Hx Hysterectomy. Denies: Hx Pacemaker - Immunizations Immunizations up to date: Yes Hx Diphtheria, Pertussis, Tetanus Vaccination: Yes Physical Exam - Vital signs Vitals: Temp Pulse Resp BP Pulse Ox 98.9 F 89 20 127/63 H 100 10/29/19 21:05 10/29/19 21:05 10/29/19 21:05 10/29/19 21:05 10/29/19 21:05 Course - Vital Signs Vital signs: Temp Pulse Resp BP Pulse Ox 98.9 F 89 20 127/63 H 100 10/29/19 21:05 10/29/19 21:05 10/29/19 21:05 10/29/19 21:05 10/29/19 21:05 Doctor's Discharge - Discharge Referrals: OPAL,NO [Primary Care Provider] - Follow up as needed
[2019-10-29 22:14] LABS: ABSOLUTE EOSINOPHILS # (AUTO) 0.2 10^3/uL (0.0-0.6); ABSOLUTE LYMPHOCYTES (AUTO) 2.2 10^3/uL (0.5-4.7); ABSOLUTE MONOCYTES (AUTO) 0.4 10^3/uL (0.1-1.4); ABSOLUTE NEUT (AUTO) 2.6 10^3/uL (1.7-8.2); BASOPHILS % (AUTO) 0.7 % (0-2); EOSINOPHILS % (AUTO) 3.3 % (0-6); HEMATOCRIT 32.8 % (36.0-47.0); LYMPHOCYTES % (AUTO) 40.2 % (13-45); MEAN CORPUSCULAR HEMOGLOBIN 29.5 pg (27.0-33.4); MEAN CORPUSCULAR HGB CONC 33.4 g/dL (32.0-36.0); MEAN CORPUSCULAR VOLUME 88 fl (80-97); MONOCYTES % (AUTO) 7.7 % (3-13); PLATELET COUNT 366 10^3/uL (150-450); RED BLOOD COUNT 3.71 10^6/uL (3.72-5.28); RED CELL DISTRIBUTION WIDTH 15.4 % (11.5-14.0); SEGMENTED NEUTROPHILS % (AUTO) 48.1 % (42-78); TOTAL CELLS COUNTED % (AUTO) 100 %; WHITE BLOOD COUNT 5.4 10^3/uL (4.0-10.5)
[2019-10-29 22:16] LABS: APPEARANCE,URINE SLIGHTLY-CLOUDY; BILIRUBIN,URINE NEGATIVE (NEGATIVE); COLOR,URINE YELLOW; GLUCOSE, URINE NEGATIVE (NEGATIVE); KETONES,URINE NEGATIVE (NEGATIVE); PROTEIN,URINE 30 mg/dL (NEGATIVE); URINE SPECIFIC GRAVITY 1.033
[2019-10-29 22:34] LABS: ALBUMIN 3.9 g/dL (3.5-5.0); ALKALINE PHOSPHATASE 48 U/L (38-126); ANION GAP 5 (5-19); ASPARTATE AMINO TRANSFERASE 20 U/L (14-36); BILIRUBIN,TOTAL 0.5 mg/dL (0.2-1.3); BLOOD UREA NITROGEN 14 mg/dL (7-20); CALCIUM 8.9 mg/dL (8.4-10.2); CARBON DIOXIDE 29 mmol/L (22-30); CHLORIDE 105 mmol/L (98-107); GLUCOSE 84 mg/dL (75-110); POTASSIUM 4.2 mmol/L (3.6-5.0); TOTAL PROTEIN 6.7 g/dL (6.3-8.2)
--- NOTE | 2019-10-30 05:31 | ER Document Report ---
ED General - General Chief Complaint: Abdominal Swelling Stated Complaint: ABDOMINAL AND BACK PAIN Time Seen by Provider: 10/29/19 21:33 Primary Care Provider: ROBLES JOSEPH [Primary Care Provider] - Follow up as needed INOCENCIO WINTERS MD [ACTIVE STAFF] - Follow up as needed JAQUELIN BAUTISTA MD [ACTIVE STAFF] - Follow up as needed TRAVEL OUTSIDE OF THE [place] IN LAST 30 DAYS: No - HPI Notes: 39-year-old female no significant medical history presents with complaints of fluid in belly 9 days after tummy tuck. Surgery was performed by in [place]. patient has otherwise been improving since surgery, has had decreasing pain, and generally feels well. Patient began noticing that as she was healing she still had fluid in her lower abdomen bilaterally. Patient denies any i ncreasing pain, focal swelling, fever, vomiting, diarrhea, constipation, melena, bright red blood per rectum, urinary symptoms. Has not followed up with surgeon since surgery - Related Data Allergies/Adverse Reactions: No Known Allergies Allergy (Verified 03/01/18 10:14) Past Medical History - General Information source: Patient - Social History Smoking Status: Never Smoker Family History: DM, Hyperlipidemia, Hypertension, Other - gout Patient has homicidal ideation: No - Past Medical History Cardiac Medical History: Denies: Hx Atrial Fibrillation, Hx Congestive Heart Failure, Hx Heart Attack, Hx Hypercholesterolemia, Hx Hypertension Pulmonary Medical History: Denies: Hx Asthma, Hx Bronchitis, Hx COPD, Hx Pneumonia Neurological Medical History: Denies: Hx Seizures Endocrine Medical History: Denies: Hx Diabetes Mellitus Type 2 Renal/ Medical History: Denies: Hx End Stage Renal Disease, Hx Peritoneal Dialysis, Hx Renal Insufficiency GI Medical History: Denies: Hx Gastroesophageal Reflux Disease Musculoskeletal Medical History: Denies Hx Arthritis Psychiatric Medical History: Reports: Hx Anxiety Past Surgical History: Reports: Hx Section - x2, Hx Cholecystectomy, Hx Hysterectomy. Denies: Hx Pacemaker - Immunizations Immunizations up to date: Yes Hx Diphtheria, Pertussis, Tetanus Vaccination: Yes Review of Systems - Review of Systems Notes: REVIEW OF SYSTEMS: CONSTITUTIONAL : Denies fever, chills, or sweats. EENT: Denies recent cold/sinus symptoms, denies throat pain CARDIOVASCULAR: Denies chest pain, LASHON RESPIRATORY: Denies cough, denies shortness of breath. GASTROINTESTINAL: Denies abdominal pain, nausea/vomiting. GENITOURINARY: Denies difficulty urinating, painful urination. FEMALE GENITOURINARY: Denies abnormal vaginal bleeding, vaginal discharge. MUSCULOSKELETAL: Denies neck pain, back pain. SKIN: Denies rash or skin lesions. HEMATOLOGIC : Denies easy bruising or bleeding. LYMPHATIC: Denies swollen, enlarged glands. NEUROLOGICAL: Denies headache, denies change in gait. PSYCHIATRIC: Denies anxiety or stress or depression. Physical Exam - Vital signs Vitals: Temp Pulse Resp BP Pulse Ox 98.9 F 89 20 127/63 H 100 10/29/19 21:05 10/29/19 21:05 10/29/19 21:05 10/29/19 21:05 10/29/19 21:05 - Notes Notes: PHYSICAL EXAMINATION: GENERAL: Well-appearing, well-nourished and in no acute distress. HEAD: Atraumatic, normocephalic. EYES: Pupils equal round and appropriate constriction, sclera anicteric, conjunctiva are normal. ENT: nares patent, moist mucous membranes. NECK: Normal range of motion, supple without lymphadenopathy LUNGS: Normal respiratory rate, normal respiratory effort HEART: Regular rate, no JVD ABDOMEN: Soft, very mild diffuse abdominal tenderness proportionate to postop status, patient has well healing surgical incision transversely across lower abdomen which is nontender and has no redness or discharge, patient has small fluid wave across lower abdomen without any focal tenderness EXTREMITIES: Normal range of motion, no pitting or edema. No cyanosis. NEUROLOGICAL: Awake, alert, conversing appropriately, moves all extremities spontaneously. PSYCH: Normal mood, normal affect. SKIN: Warm, Dry, normal turgor, no rashes or lesions noted. Course - Re-evaluation Re-evalutation: 10/30/19 05:36 My evaluation the patient was delayed by patient not being placed in the room until approximately 5:15 AM today. patient's swelling in her abdomen is consistent with what would be expected from abdominoplasty less than 2 weeks postop. Patient was operated on in [place] so did not have surgical drains placed and the swelling is only able to be reduced by bodies reabsorption thus slower than drainage. There are no signs of infection and patient surgical incision is well healing. Patient has no systemic symptoms, obtained basic labs which were normal aside from mild anemia which would be expected postop. Patient had slight blood in urine, gave patient a copy of all results to follow-up with PCP. Gave patient information for a plastic surgeon in this area to follow-up with. I gave patient extensive return to ED precautions which she demonstrated understanding of. Patient ready for discharge. - Vital Signs Vital signs: Temp Pulse Resp BP Pulse Ox 98.1 F 57 L 18 106/37 L 100 10/30/19 04:30 10/30/19 04:30 10/30/19 04:30 10/30/19 04:30 10/30/19 04:30 - Laboratory Result Diagrams: 10/29/19 21:57 10/29/19 21:57 Laboratory results interpreted by me: 10/29/19 10/29/19 21:57 21:57 RBC 3.71 L Hgb 11.0 L Hct 32.8 L RDW 15.4 H Urine Protein 30 H Urine Blood SMALL H Urine Urobilinogen 4.0 H Discharge - Discharge Clinical Impression: Postoperative edema Disposition: HOME, SELF-CARE Additional Instructions: AFTER SURGERY Activity: Slowly increase your activity. Be sure to get up and walk every few hours or so to prevent blood clot formation. Do not lift heavy items greater than 10 pounds or participate in strenuous activity for at least 4 weeks. Convalescent leave for 21 days starting today followed by light duty for 21 days. A light duty chit will be given to you at your follow up appointment. Wound Care: Always wash your hands before and after touching near your incision site. Do not soak in a bathtub, go swimming or submerge in water for at least 2 weeks. You may take a shower after the second postoperative day. A small amount of drainage from the incision is normal. If the dressing is soaked with blood, call the General Surgery clinic. A small amount of drainage from the incision is normal. If the dressing is soaked with blood, call your surgeon. If you have Steri-strips in place, they will fall off in 7 to 10 days. If you have a glue-like covering over the incision, allow the glue to flake off on its own. If you have a dressing covering your incision, you may remove your dressing after two days and leave it open to the air. If you have packing inside your wound. Remove the packing in 24 hours and change the dressing as instructed by your surgeon daily. Avoid wearing tight or rough clothing. It may rub against your incisions and make it harder for them to heal. Protect the new skin, especially from the sun. The sun can burn and cause darker scarring. Your scar will heal in about 4 to 6 weeks and will become softer and continue to fade over the next year. Bowel Movements: Avoid straining with bowel movements by increasing the fiber in your diet w ith high- fiber foods or [id number] medicines (like Metamucil and Fibercon). Be sure you are drinking 8 to 10 glasses of water each day. Be sure to also take the Colace as prescribed to prevent constipation from taking narcotics. Contact your surgeon if you have: Pain that will not go away Pain that gets worse A fever of more than 100.4F Repeated vomiting Swelling, redness, bleeding, or foul- smelling drainage from your wound site Strong or continuous abdominal pain or swelling of your abdomen No bowel movement by 3 days after the operation The fluid in your belly is normal for being a week and a half out from a major surgery and should gradually start to improve. Follow-up with plastic surgeon Dr. Bautista within 1 week. Follow-up with him sooner or return to the emergency department immediately if you have any of the above symptoms. You had a small amount of blood in your urine which you should follow-up with your primary doctor as it could be a sign of a dangerous condition such as cancer. Referrals: OPAL,ROBLES [Primary Care Provider] - Follow up as needed INOCENCIO WINTERS MD [ACTIVE STAFF] - Follow up as needed JAQUELIN BAUTISTA MD [ACTIVE STAFF] - Follow up as needed
[2019-10-30 05:44] VITALS: BP 110/40
== END 2019-10-30 05:42 | disposition home or self-care (01) ==
LOC: ER 20:46
DX: R60.9 Edema, unspecified (principal); R19.00 Intra-abdominal and pelvic swelling, mass and lump, unspecified site; R10.9 Unspecified abdominal pain; M54.9 Dorsalgia, unspecified; R10.31 Right lower quadrant pain; R10.32 Left lower quadrant pain; Z98.890 Other specified postprocedural states
CPT/HCPCS: 36415; 80053; 81001; 85025; 99284

== ENCOUNTER 2020-01-24 14:36 | Emergency (ER) | payer MEDICAID ==
--- NOTE | 2020-01-24 14:52 | ER Document Report ---
HPI - HPI Time Seen by Provider: 01/24/20 14:49 Notes: 39-year-old female patient presents the emergency department chief complaint of dysuria and urinary urgency. Patient reports history of UTIs in the past, states this feels very similar. She states that she does not have any fevers, chills, nausea, vomiting or diarrhea. - ROS Systems Reviewed and Negative: Yes All other systems reviewed and negative - URINARY Urinary: REPORTS: Dysuria, Urgency, Frequency - REPRODUCTIVE Reproductive: DENIES: : Past Medical History - General Information source: Patient - Social History Smoking Status: Never Smoker Family History: DM, Hyperlipidemia, Hypertension, Other - gout - Past Medical History Cardiac Medical History: Denies: Hx Atrial Fibrillation, Hx Congestive Heart Failure, Hx Heart Attack, Hx Hypercholesterolemia, Hx Hypertension Pulmonary Medical History: Denies: Hx Asthma, Hx Bronchitis, Hx COPD, Hx Pneumonia Neurological Medical History: Denies: Hx Seizures Endocrine Medical History: Denies: Hx Diabetes Mellitus Type 2 Renal/ Medical History: Denies: Hx End Stage Renal Disease, Hx Peritoneal Dialysis, Hx Renal Insufficiency GI Medical History: Denies: Hx Gastroesophageal Reflux Disease Musculoskeletal Medical History: Denies Hx Arthritis Psychiatric Medical History: Reports: Hx Anxiety Past Surgical History: Reports: Hx Section - x2, Hx Cholecystectomy, Hx Hysterectomy. Denies: Hx Pacemaker - Immunizations Immunizations up to date: Yes Hx Diphtheria, Pertussis, Tetanus Vaccination: Yes Vertical Provider Document - CONSTITUTIONAL Notes: PHYSICAL EXAMINATION: GENERAL: Well-appearing, well-nourished and in no acute distress. HEAD: Atraumatic, normocephalic. EYES: Pupils equal round extraocular movements intact, conjunctiva are normal. ENT: Nares patent NECK: Normal range of motion LUNGS: No respiratory distress Abdomen: Abdomen soft, nontender. No CVA tenderness. Musculoskeletal: Normal range of motion NEUROLOGICAL: Normal speech, normal gait. PSYCH: Normal mood, normal affect. SKIN: Warm, Dry, normal turgor, no rashes or lesions noted. - INFECTION CONTROL TRAVEL OUTSIDE OF THE [place] IN LAST 30 DAYS: No Course - Re-evaluation Re-evalutation: Urinalysis consistent with urinary tract infection. Patient will be prescribed antibiotics. Urine culture pending. - Vital Signs Vital signs: Temp Pulse Resp BP Pulse Ox 98.3 F 68 20 129/50 H 100 01/24/20 14:47 01/24/20 14:47 01/24/20 14:47 01/24/20 14:47 01/24/20 14:47 Discharge - Discharge Clinical Impression: Urinary tract infection Qualifiers: Urinary tract infection type: site unspecified Hematuria presence: with hematuria Qualified Code(s): N39.0 - Urinary tract infection, site not specified Condition: Stable Disposition: HOME, SELF-CARE Additional Instructions: Your urine shows findings consistent with a urinary tract infection. Please take all the antibiotics as directed even if your symptoms have improved. Please follow-up with your primary care physician as needed. Return to emergency room if you develop fever >101F, persistent vomiting, become lethargic, have severe pain in your sides, or any other symptoms that are concerning to you. One of the medications we gave you here in the emergency department will help with the pain with urination but it will turn your urine bright orange, do not be alarmed by this Prescriptions: Cephalexin [Keflex] 500 mg PO BID #14 capsule Forms: Return to Work Referrals: PEG MERCEDES DO [Primary Care Provider] - Follow up as needed
[2020-01-24 15:33] LABS: APPEARANCE,URINE SLIGHTLY-CLOUDY; BILIRUBIN,URINE NEGATIVE (NEGATIVE); COLOR,URINE YELLOW; GLUCOSE, URINE NEGATIVE (NEGATIVE); KETONES,URINE NEGATIVE (NEGATIVE); LEUKOCYTE ESTERASE,URINE MODERATE (NEGATIVE); NITRITE,URINE NEGATIVE (NEGATIVE); PROTEIN,URINE 100 mg/dL (NEGATIVE)
[2020-01-24] MEDS ORDERED: PHENAZOPYRIDINE HCL 200 MG TABLET PO ONE (15:46)
[2020-01-24] MEDS ORDERED: CEPHALEXIN 500 MG CAPSULE PO ONE (15:46)
[2020-01-24 16:15] VITALS: BP 117/51
== END 2020-01-24 16:15 | disposition home or self-care (01) ==
LOC: ER 14:36
DX: N39.0 Urinary tract infection, site not specified (principal); R31.9 Hematuria, unspecified
CPT/HCPCS: 99283; 87086; 81025; 87088; 81001; 87186; J3490

== ENCOUNTER 2020-04-27 17:56 | Emergency (ER) | payer MEDICAID ==
[2020-04-27 19:17] VITALS: BP 124/51
[2020-04-27 20:57] LABS: A TYPE INFLUENZA AG NEGATIVE (NEGATIVE); B INFLUENZA AG NEGATIVE (NEGATIVE)
--- NOTE | 2020-04-27 21:34 | ER Document Report ---
HPI - HPI Time Seen by Provider: 04/27/20 19:13 Context: Patient is a 39-year-old female who presents to the emergency department with a chief complaint of a sore throat. States her sore throat started 2 days ago.denies any fever, body aches, or chills. - ROS Systems Reviewed and Negative: Yes All other systems reviewed and negative - CONSTITUTIONAL Constitutional: DENIES: Fever, Chills - EENT EENT: REPORTS: Sore Throat. DENIES: Ear Pain, Nasal Drainage-Clear, Nasal Drainage-Purulent, Congestion - RESPIRATORY Respiratory: DENIES: Trouble Breathing, Coughing - REPRODUCTIVE Reproductive: DENIES: : - MUSCULOSKELETAL Musculoskeletal: DENIES: Extremity pain - DERM Skin Color: Normal Skin Problems: None Past Medical History - General Information source: Patient - Social History Smoking Status: Unknown if Ever Smoked Family History: DM, Hyperlipidemia, Hypertension, Other - gout - Past Medical History Cardiac Medical History: Denies: Hx Atrial Fibrillation, Hx Congestive Heart Failure, Hx Heart Attack, Hx Hypercholesterolemia, Hx Hypertension Pulmonary Medical History: Denies: Hx Asthma, Hx Bronchitis, Hx COPD, Hx Pneumonia Neurological Medical History: Denies: Hx Seizures Endocrine Medical History: Denies: Hx Diabetes Mellitus Type 2 Renal/ Medical History: Denies: Hx End Stage Renal Disease, Hx Peritoneal Dialysis, Hx Renal Insufficiency GI Medical History: Denies: Hx Gastroesophageal Reflux Disease Musculoskeletal Medical History: Denies Hx Arthritis Psychiatric Medical History: Reports: Hx Anxiety Past Surgical History: Reports: Hx Abdominal Surgery - tummy tuck, sleeve, Hx Section - x2, Hx Cholecystectomy, Hx Hysterectomy. Denies: Hx Pacemaker - Immunizations Immunizations up to date: Yes Hx Diphtheria, Pertussis, Tetanus Vaccination: Yes Vertical Provider Document - CONSTITUTIONAL Agree With Documented VS: Yes Exam Limitations: No Limitations - INFECTION CONTROL TRAVEL OUTSIDE OF THE [place] IN LAST 30 DAYS: No - HEENT HEENT: Atraumatic, Normocephalic, PERRLA, Pharyngeal Tenderness, Pharyngeal Erythema. negative: Pharyngeal Exudate - RESPIRATORY Respiratory: Breath Sounds Normal, No Respiratory Distress - CARDIOVASCULAR Cardiovascular: Regular Rate, Regular Rhythm Pulses: Normal: Radial - MUSCULOSKELETAL/EXTREMETIES Musculoskeletal/Extremeties: FROM - NEURO Level of Consciousness: Awake, Alert, Appropriate - DERM Integumentary: Warm, Dry, No Rash Course - Re-evaluation Re-evalutation: 04/27/20 Rapid strep and influenza tests are negative. Uvula is midline. There is a slight erythema. No evidence of a peritonsillar abscess. Airway is patent. The patient was evaluated during the global COVID-19 pandemic and that diagnosis was suspected/considered upon their initial presentation. Their evaluation, treatment and testing was consistent with current guidelines for patients who present with complaints or symptoms that may be related to COVID-19. Follow-up precautions were given. Verbal discharge instructions were given to the patient. They verbalized understanding. They are stable for discharge. - Vital Signs Vital signs: Temp Pulse Resp BP Pulse Ox 98.9 F 72 20 124/51 L 100 04/27/20 19:16 04/27/20 19:16 04/27/20 19:16 04/27/20 19:16 04/27/20 19:16 - Laboratory Results Critical Laboratory Results Reviewed: No Critical Results - Radiology Results Critical Radiology Results Reviewed: No Critical Results Discharge - Discharge Clinical Impression: Sore throat, Person under investigation for COVID-19 Condition: Stable Disposition: HOME, SELF-CARE Instructions: Sore Throat ([facility]) Additional Instructions: As a person under investigation for COVID-19, the [place] Department of Health and Human Services (division on public health) advises you to adhere to the following guidance until your test results are reported to you. If your test result is positive, you will receive additional information from your provider and your local health department at that time. Remain at home until you are cleared by the health provider or public health authorities. Keep a log of visitors to your home, notify any visitors to your home of your isolation status. If you plan to move to a new address or leave the [facility], notify the local health department in your County. Call your Doctor or seek care if you have an urgent medical need. Before seeking medical care, call him to get instructions from the provider before arriving at the medical office, clinic, or hospital. Notify them that you are being tested for the virus (COVID-19) so that arrangements can be made, as necessary, to prevent transmission to others in the healthcare setting. Next, notify the local health department in your [facility]. Referrals: PEG MERCEDES, [Primary Care Provider] - Follow up as needed
--- OUTSIDE RECORDS SUMMARY | 2020-04-30 09:15 | XMS REPORT ---
:1980 Author Organization [facility] Address [facility] [address] [place] [address] Care Team Providers Name Role Phone UNASSIGNED, DOCTOR Primary Care Physician Unavailable Hailey Attending Clinician Unavailable LU SHARIF Attending Clinician Unavailable Radha Attending Clinician Unavailable Endy Attending Clinician Unavailable LU SHARIF Admitting Clinician Unavailable Allergies, Adverse Reactions, Alerts This patient has no known allergies or adverse reactions. Medications Ordered Filled Start Stop Current Ordering Indication Dosage Frequency Signature Comments Components Medication Medication Date Date Medication? Clinician (SIG) Name Name ondansetron Yes [id number] 4mg Q8H Take 1 Ta b ODT 3-06 by mouth (ZOFRAN-ODT 00:00: every 8 ) 4 mg Oral 00 hours as Tablet, needed for Rapid Nausea. Dissolve lansoprazol 2019- No 30mg QD 30 mg, e (PREVACID 05-0306 Oral, SOLUTAB) 06:00: 05:59 DAILY AT dispersible 00 :00 0600, tablet 30 First dose mg on Tue05/03/18 at 0600, For [address] karoline tab on tongue; allow to dissolve.& nbsp;&nbsp ;Do NOT swallow whole or chew.&nbsp ; May place tab in syringe to be used to give drug via NG tube.&nbsp ; Add 20 ml of water.&nbs p;&nbs p;Swirl and dissolve.& nbsp;&nbsp ;Flush tube wtih 10 ml water after administra tion.&nbsp ; Raghu e on an empty stomach at least 30 minutes before food.
iohexol 2019- No 50mL 17,500 mg (OMNIPAQUE) 1-29 01-30 (50 mL), 350 mg 09:37: 09:36 Oral, RAD iodine/mL 05 :05 ONCE, solution Other, 17,500 mg Starting Tue05/02/18 at 0937, For 1 day
For oral administra tion, mix 30 mL contrast with 900 mL water or other patient-pr eferred beverage, such as Lemonade, Huy-Aid, Sprite, 7-Up.&nbsp ; Do not mix with any red colored beverage.< br> HYDROcodone 2018- No 10mL Q4H 10 mL, -acetaminop 05-02 Oral, hen (HYCET) 06:52: 06:51 EVERY 4 7.5-325 00 :00 HOURS mg/15 mL NEEDED, solution 10 Severe mL Pain, Starting Tue05/02/18 at 0652, For 30 days<br&gt ;Fall Risk Medication . Contains 8.6 % alcohol. Pediatrics : Do not exceed 5 doses of acetaminop hen in 24 hours.
HYDROcodone 2018- No 5mL Q4H 5 mL, -acetaminop 05-02 Oral, hen (HYCET) 06:51: 06:50 EVERY 4 7.5-325 52 :52 HOURS mg/15 mL NEEDED, solution 5 Moderate mL Pain, Starting Tue05/02/18 at 0651, For 30 days<br&gt ;Fall Risk Medication . Contains 8.6 % alcohol. Pediatrics : Do not exceed 5 doses of acetaminop hen in 24 hours.
acetaminoph 2018- No 650mg Q6H 650 mg en 05-02 (3.65 (TYLENOL) 06:40: 06:39 mg/kg), solution 11 :11 Oral, 650 mg EVERY 6 HOURS NEEDED, Mild Pain, Headache, Starting Tue05/02/18 at 0640, For 30 days
Pe diatrics:& nbsp;&nbsp ;Do not exceed 5 doses of acetaminop hen in 24 hours.
lansoprazol 2018- No 15mg Q.5D 15 mg, e (PREVACID 05-02 Oral, SOLUTAB) 06:00: 06:54 EVERY 12 dispersible 00 :55 HOURS tablet 15 (0600, mg 1800), First dose on Tue05/02/18 at 0600, For 30 [address]
Pl karoline tab on tongue; allow to dissolve.& nbsp;&nbsp ;Do NOT swallow whole or chew.&nbsp ; May place tab in syringe to be used to give drug via NG tube.&nbsp ; Add 20 ml of water.&nbs p; Sw irl and dissolve.& nbsp;&nbsp ;Flush tube wtih 10 ml water after administra tion.&nbsp ; Raghu e on an empty stomach at least 30 minutes before food.
ceFAZolin 2018- No 3055 2g Q8H 2 g, in dextrose 05-02 Intravenou (iso-os) 01:00: 10:47 s, at 100 (ANCEF) 2 00 :00 mL/hr, gram/50 mL Administer IVPB over 30 (premix) 2 Minutes, g EVERY 8 HOURS FREE TIMES, First dose on Tue05/02/18 at 0100, For 2 doses
I ndications : Perioperat ailin Prophylaxi s HYDROcodone Yes 10mL Q4H Take 10 mL -acetaminop 05-02 by mouth hen 7.5-325 00:00: every 4 mg/15 mL 00 hours as Oral Soln needed. omeprazole Yes 20mg QD Take 1 Cap (PRILOSEC) 05-02 by mouth 20 mg Oral 00:00: daily. 00 enoxaparin 2018- No 40mg Q.5D Give 0.4 (LOVENOX) 05-02 02-12 mL 40 mg/0.4 00:00: 23:59 subcutaneo mL 00 :00 us every Subcutaneou 12 hours s Syringe for 14 days. enoxaparin 2019- No 40mg Q.5D 40 mg, (LOVENOX) 05-01 02-27 Subcutaneo 40 mg/0.4 22:00: 21:59 us, EVERY mL 00 :00 12 HOURS, injection First dose 40 mg on Tue05/01/18 at 2200, For 30 days
In ject at a 90 degree angle.&nbs p; Do NOT expel air bubble at tip of syringe.&n bsp; Do NOT massage injection site.&nbsp ; Alt ernate between the left and right anterolate ral and left and right posterolat eral abdominal wall.&nbsp ; Doc ument administra tion site.& nbsp;BLACK BOX WARNING: Epidural or spinal hematomas may occur in patients who are anticoagul ated with LMWHs or heparinoid s and are receiving neuraxial anesthesia or undergoing spinal puncture. These hematomas may result in long-term or permanent paralysis. Consider these risks when scheduling patients for spinal procedures .
lactated 2018- No 50mL/h 50 mL/hr, Ringer's 05-01 Intravenou infusion 19:50: 06:40 s, at 50 00 :39 mL/hr, CONTINUOUS , Starting Tue05/01/18 at 1950, For 30 days ondansetron 2018- No 4mg Q6H 4 mg (ZOFRAN) 05-01 (0.0225 injection 4 19:49: 19:48 mg/kg), mg 52 :52 Intravenou s, EVERY 6 HOURS NEEDED, Nausea/Vom iting, Starting Tue05/01/18 at 1949, For 30 days
Do ses 4 mg or less can be administer ed IV push over 3-5 minutes.&n bsp;&n bsp;Doses over 4 mg should be diluted and infused over 15 minutes.&n bsp; &nbs p;
HYDROmorpho 2018- No 1mg 1 mg ne 05-01 (0.03590 (DILAUDID) 18:54: 19:46 mg/kg), 1 mg/mL 18 :40 Intravenou injection 1 s, ANES mg EVERY 5 MINUTES NEEDED, Unrelieved Pain, PostOp unrelieved pain if ordered oral meds or previous IV dose insufficie nt, Starting Tue05/01/18 at 1854, For 30 days, PACU
PA CU ONLY. Maximum cumulative dose 2 mg (Check all prior administra tions) Fall Risk Medication .
hepARIN 2018- No 5000U 5,000 (porcine) 1-28 01-28 Units 5,000 11:30: 11:42 (28.1 unit/mL 00 :00 Units/kg), injection Subcutaneo 5,000 Units us, PRE OP, 05/01/18 at 1130, For 1 dose, Pre-Op
Document administra tion site.
aprepitant 2018- No [id number] 40mg 40 mg, (EMEND) 40 05-01 Oral, mg capsule 11:25: 11:42 ONCE, Mon 40 mg 00 :00 05/01/18 at 1125, For 1 dose, Pre-Op
Administer 3 hours prior to induction of anesthesia .
famotidine 2018- No 20mg 20 mg (PEPCID) 05-01 (0.112 injection 10:40: 11:38 mg/kg), 20 mg 00 :00 Intravenou s, Administer over 2 Minutes, ANES ONCE, 05/01/18 at 1040, For 1 dose, Pre-Op
Dilute in 5 mL of 0.9% sodium chloride and give over 2 minutes.<b r> midazolam 2018- No 2mg 2 mg (PF) 05-01 (0.0112 (VERSED) 10:40: 15:54 mg/kg), injection 2 00 :00 Intravenou mg s, ANES ONCE, 05/01/18 at 1040, For 1 dose, Pre-Op
Fall Risk Medication
acetaminoph 2018- No 1000mg 1,000 mg, en 05-01 Oral, ANES (TYLENOL) 10:40: 11:32 ONCE, Mon tablet 00 :00 05/01/18 at 1,000 mg 1040, For 1 dose, Pre-Op
Pediatrics : &am p;nbsp;Do not exceed 5 doses of acetaminop hen in 24 hours.
lidocaine 2019- No .5mL 0.5 mL, PF 05-01 Intraderma (XYLOCAINE) 10:40: 09:50 l, ONCE, 10 mg/mL (1 00 :00 Mon %) 05/01/18 at injection 1040, For 0.5 mL 1 dose, Pre-Op
Pre-Operat ively for IV start. May repeat X 2.
therapeutic 2019- No 1{tbl} QD Take 1 Tab multivitami 04-28 by mouth n 13:37: 00:00 daily. (THERAGRAN) 09 :00 Oral Tablet ergocalcife 2017-04 2019- No [id number] 37020T Q1W Take 1 C ap rol 05-14 by mouth (VITAMIN 00:00: 00:00 every week D-2) 50,000 00 :00 for 8 unit Oral doses. Capsule Puncture the gelcap in order to get the medication out. propofol 10 2017-04- No Q1D Intravenou mg/mL 04-30 s, (DIPRIVAN) 10:46: 11:01 NEEDED, bolus 00 :35 Starting injection 02/28/18 at 1046, Intra-op lidocaine 2017-04- No Q1D NEEDED, PF 04-30 Starting (XYLOCAINE) 10:46: 11:01 Tue 20 mg/mL (2 00 :35 02/28/18 %) at 1046, injection Intra-op sodium 2017-04- No Intravenou chloride 04-30 s, 0.9 % 10:42: 11:01 CONTINUOUS infusion 00 :35 PRN, Starting 02/28/18 at 1042, Intra-op escitalopra 2018- No 5mg QD Take 5 mg m (LEXAPRO) 09-29 by mouth 5 mg Oral 00:00: 00:00 daily. Tablet 00 :00 Phentermine 2018- No 37.5mg QD Take 37.5 37.5 mg 09-29-25 mg by Oral Tablet 00:00: 00:00 mouth 00 :00 every morning. Problems Condition Condition Condition Status Onset Resolution Last Treatin g Comments Name Details Category Date Date Treatment Clinician Date S/P S/P [id number] Active laparoscopi laparoscopi 2-11 c sleeve c sleeve 00:00: gastrectomy gastrectomy 00 Morbid Morbid [id number] Active obesity obesity 1-28 with BMI of with BMI of 00:00: 40.0-44.9, 40.0-44.9, 00 adult adult Obesity, Obesity, [id number] Active 2018- Class III, Class III, 0-02 BMI 40-49.9 BMI 40-49.9 00:00: (morbid (morbid 00 obesity) obesity) GERD GERD [id number] Active (gastroesop (gastroesop hageal hageal reflux reflux disease) disease) Pre-diabete Pre-diabete [id number] Active s s Procedures Procedure Date / Time Performed Performing Clinician Devi e OFFICE/OUTPATIENT VISIT EST 2019-08-21 08:45:00 OFFICE/OUTPATIENT VISIT EST 2019-04-03 09:00:00 COMPREHENSIVE METABOLIC PANEL 2018-06-07 16:37:00 Donte Sharif IRON 2018-06-07 16:37:00 Matthew Sharif VITAMIN B12 2018-06-07 16:37:00 Matthew Sharif CBC WITH DIFF 2018-06-07 16:37:00 Matthew Sharif XRAY GI W/O 2018-05-02 14:36:32 Tere Lacy CBC WITH DIFF 2018-05-02 09:00:00 Tere Lacy GLUCOSE, POC (GLUCOMETER) 2018-05-02 03:54:00 Matthew Sharif LAPAROSCOPIC SLEEVE GASTRECTOMY 2018-05-01 16:13:00 Oskar Sharif GLUCOSE, POC (GLUCOMETER) 2018-05-01 15:50:00 Matthew Sharif EKGSCAN 2018-05-01 05:00:00 Unassign, Doctor TYPE & SCREEN 2018-04-17 15:55:00 O'Jaren Mckeon XRAY CHEST 2 VIEWS 2018-02-22 16:58:24 Matthew Sharif EKG 12 LEAD 2018-02-22 16:32:00 Matthew Sharif MARC'S TEST 2018-02-22 16:06:00 Matthew Sharif BLOOD GAS, ARTERIAL 2018-02-22 16:06:00 Matthew Sharif URINALYSIS, COMPLETE 2018-02-22 15:58:00 Matthew Sharif COMPREHENSIVE METABOLIC PANEL 2018-02-22 15:58:00 Donte Sharif TSH 2018-02-22 15:58:00 Matthew Sharif CBC WITH DIFF 2018-02-22 15:58:00 Matthew Sharif HEMOGLOBIN A1C (GLYCOSYLATED) 2018-02-22 15:58:00 Donte Sharif PREALBUMIN 2018-02-22 15:58:00 Matthew Sharif LIPID PANEL 2018-02-22 15:58:00 Matthew Sharif T4, FREE 2018-02-22 15:58:00 Matthew Sharif PT (PROTHROMBIN TIME) WITH INR 2018-02-22 15:58:00 Reji Sharif winpinky Kimball PTT 2018-02-22 15:58:00 Matthew Sharif EKGSCAN 2018-02-22 05:00:00 Unassign, Doctor OFFICE/OUTPATIENT VISIT EST 2017-08-19 13:10:00 HEP A VACCINE ADULT IM 2017-02-02 11:00:00 PARTIAL HYSTERECTOMY 2009-04-04 00:00:00 Laparoscopic Cholecystectomy 2007-04-04 00:00:00 DELIVERY 2006-04-04 00:00:00 DELIVERY 2003-04-04 00:00:00 Results Test Description Test Time Test Comments Text Results Atomic Results Result Comments SARS-CoV-2 RNA Resp Ql DAKOTA+probe 2019-11-16 00:00:00 Test Item Value Reference Range Comments SARS-CoV-2 RNA Resp Ql DAKOTA+probe Not detected [place] [facility] Case ID: (test code = 64779-8) [id number] SARS-CoV-2, DAKOTA\S\2019-11-14 16:23:00 Test Item Value Reference Range Comments SARS-CoV-2, DAKOTA (test code = 54197-6) Not Detected Not Detect ed HIV 1/2 ANTIGEN/ANTIBODY,FOURTH GENERATION [id number] 10:05:00NON-REACTIVE T3, [id number] 10:05:[id number] 10:05:[id number] 10:05:001.9IRON AND TOTAL IRON BINDING [id number] 10:05:00 Test Item Value Reference Range Comments IRON, TOTAL (test code = 78542844) 106 mcg/dL 40-190 IRON BINDING CAPACITY (test code = 221 mcg/dL (calc) 250-450 51656956) % SATURATION (test code = 39721087) 48 % (calc) 16-45 CBC (INCLUDES DIFF/PLT)2019-08-21 10:05:00 Test Item Value Reference Range Comments EOSINOPHILS (test code = 18161415) 1.5 % BASOPHILS (test code = 54472950) 0.9 % PLATELET COUNT (test code = 70156547) 218 Thousand/uL 140-400 LYMPHOCYTES (test code = 97098783) 42.0 % MPV (test code = 51505301) 9.3 fL 7.5-12.5 RDW (test code = 00784900) 13.2 % 11.0-15.0 ABSOLUTE EOSINOPHILS (test code = 89727242) 50 cells/uL 15-5 00 HEMOGLOBIN (test code = 53733920) 12.9 g/dL 11.7-15.5 MONOCYTES (test code = 18122426) 6.9 % HEMATOCRIT (test code = 20696269) 37.9 % 35.0-45.0 ABSOLUTE NEUTROPHILS (test code = 41920657) 1607 cells/uL 1500 -7800 ABSOLUTE BASOPHILS (test code = 86519020) 30 cells/uL 0-200 RED BLOOD CELL COUNT (test code = 44774429) 4.37 Million/uL 3.80 -5.10 NEUTROPHILS (test code = 75427061) 48.7 % WHITE BLOOD CELL COUNT (test code = 3.3 Thousand/uL 3.8-10.8 21920560) MCH (test code = 99300906) 29.5 pg 27.0-33.0 ABSOLUTE MONOCYTES (test code = 73065109) 228 cells/uL 200-95 0 ABSOLUTE LYMPHOCYTES (test code = 32301074) 1386 cells/uL 850- 3900 MCV (test code = 11270577) 86.7 fL 80.0-100.0 MCHC (test code = 73507508) 34.0 g/dL 32.0-36.0 VITAMIN [id number] 10:05:31729VECSH PANEL, [id number] 10:05:00 Test Item Value Reference Range Comments CHOLESTEROL, TOTAL (test code = 70385975) 172 mg/dL <200 NON HDL CHOLESTEROL (test code = 71158348) 110 mg/dL (calc) <130 LDL-CHOLESTEROL (test code = 22983850) 97 mg/dL (calc) TRIGLYCERIDES (test code = 54580252) 51 mg/dL <150 CHOL/HDLC RATIO (test code = 71445193) 2.8 (calc) <5.0 HDL CHOLESTEROL (test code = 89240221) 62 mg/dL > OR = 50 PTH, INTACT AND [id number] 10:05:00 Test Item Value Reference Range Comments PARATHYROID HORMONE, INTACT (test code = 40888563) 31 pg/mL 14-64 CALCIUM (test code = 65870931) 9.4 mg/dL 8.6-10.2 HEMOGLOBIN A1c WITH [id number] 10:05:00 Test Item Value Reference Range Comments eAG (mmol/L) (test code = 93344884) 5.4 (calc) eAG (mg/dL) (test code = 22627757) 97 (calc) HEMOGLOBIN A1c (test code = 4548-4) 5.0 % of total Hgb <5.7 VITAMIN D,25-OH,TOTAL,[id number] 10:05:0021COMPREHENSIVE METABOLIC PANEL 2019-08-21 10:05:00 Test Item Value Reference Range Comments CREATININE (test code = 31820780) 0.83 mg/dL 0.50-1.10 ALT (test code = 66799584) 11 U/L 6-29 CHLORIDE (test code = 92275511) 106 mmol/L 98-110 eGFR (test code = 104 mL/min/1.73m2 > OR = 60 01287214) eGFR NON-AFR. RWANDAN (test code = 90 mL/min/1.73m2 > OR = 60 16489999) BUN/CREATININE RATIO (test code = NOT APPLICABLE (calc) 6-22 80780422) PROTEIN, TOTAL (test code = 11057666) 6.7 g/dL 6.1-8.1 GLOBULIN (test code = 36226302) 2.4 g/dL (calc) 1.9-3.7 ALBUMIN/GLOBULIN RATIO (test code = 1.8 (calc) 1.0-2.5 27422978) ALBUMIN (test code = 20805853) 4.3 g/dL 3.6-5.1 ALKALINE PHOSPHATASE (test code = 56 U/L 31-125 81291400) AST (test code = 92421404) 20 U/L 10-30 CARBON DIOXIDE (test code = 19244015) 28 mmol/L 20-32 GLUCOSE (test code = 20832603) 81 mg/dL 65-99 BILIRUBIN, TOTAL (test code = 0.7 mg/dL 0.2-1.2 29880481) CALCIUM (test code = 47776037) 9.4 mg/dL 8.6-10.2 SODIUM (test code = 03028384) 142 mmol/L 135-146 POTASSIUM (test code = 84784168) 3.7 mmol/L 3.5-5.3 UREA NITROGEN (BUN) (test code = 12 mg/dL 7-25 ) BV/VAGINITIS PANEL DNA [id number] 10:05:00SEE NOTET4, [id number] 10:05:001.0PHOSPHATE ( PHOSPHORUS)2019-08-21 10:05:[id number] 10:05:00 1.44WET MOUNT\S\[id number] 15:43:00 Test Item Value Reference Range Comments BACTERIA (WET [place]) (test code = BACT) 4+ BACTERIA SEEN YEAST (WET [place]) (test code = YSTS) NO YEAST SEEN T.VAGINALIS ([place]ET [place]) (test code = NO TRICHOMONAS SEEN TRICH) EPITHELIALS (WET [place]) (test code = 3+ EPITHELIALS SEEN EPIS) WBCS (WET [place]) (test code = WBCS) 1+ WBCS SEEN CHLAM ARON PCR URINE INHOUSE\S\[id number] 14:50:00 Test Item Value Reference Range Comments ARON PCR (test code = GONPCR) NOT DETECTED NOT DETECT CHLAM PCR (test code = CHLAMPCR) NOT DETECTED NOT DETECT URINE CULTURE\[id number] 14:50:00 Test Item Value Reference Range Comments MIXED UROGENITAL JUDIE (test code = MSF) [facility]ON PCR URINE INHOUSE\S\[id number] 12:10:00 Test Item Value Reference Range Comments ARON PCR (test code = GONPCR) NOT DETECTED NOT DETECT CHLAM PCR (test code = CHLAMPCR) NOT DETECTED NOT DETECT Urine \S\[id number] 11:50:00 Test Item Value Reference Range Comments Urine (test code = URINEPREG) Negative N/A COMPREHENSIVE METABOLIC PANEL\[id number] 14:47:00 Test Item Value Reference Range Comments ALBUMIN (test code = ALB) 4.0 g/dL 3.5-5.0 CHLORIDE (test code = CL-1) 105 mmol/L 98-107 CREATININE RESULT (test code = CREA) 0.88 mg/dL 0.52-1.25 EGFR,NON (test code = GFRN) > 60 >60 BILIRUBIN,TOTAL (test code = TBIL) 0.6 mg/dL 0.2-1.3 BLOOD UREA NITROGEN (test code = BUN) 9 mg/dL 7-20 EGFR, (test code = GFRAA) > 60 >60 ALANINE AMINOTRANSFERASE (test code = ALT) 22 U/L 9-52 POTASSIUM (test code = K) 4.0 mmol/L 3.6-5.0 ALKALINE PHOSPHATASE (test code = ALKP) 61 U/L 38-126 CARBON DIOXIDE (test code = CO2) 30 mmol/L 22-30 BILIRUBIN,DIRECT (test code = BC) 0.2 mg/dL 0.0-0.4 GLUCOSE (test code = GLU) 78 mg/dL 75-110 CALCIUM (test code = CA) 9.8 mg/dL 8.4-10.2 TOTAL PROTEIN (test code = TP) 6.6 g/dL 6.3-8.2 ANION GAP (test code = ANION) 10 5-19 ASPARTATE AMINO TRANSFERASE (test code = AST) 21 U/L 14 -36 SODIUM (test code = NA) 144.9 mmol/L 137-145 CBC WITH DIFF\S\[id number] 14:47:00 Test Item Value Reference Range Comments RED CELL DISTRIBUTION WIDTH (test code = RDW) 14.3 % 11 .5-14.0 MONOCYTES % (AUTO) (test code = MO%) 8.6 % 3-13 ABSOLUTE LYMPHOCYTES (AUTO) (test code = LY#) 1.6 10 3/uL 0. 5-4.7 LYMPHOCYTES % (AUTO) (test code = LY%) 33.3 % 13-45 MEAN CORPUSCULAR VOLUME (test code = MCV) 84 fl 80-97 ABSOLUTE EOSINOPHILS # (AUTO) (test code = EO#) 0.1 10 3/uL 0.0-0.6 HEMOGLOBIN (test code = HGB) 12.5 g/dL 12.0-15.5 MEAN CORPUSCULAR HGB CONC (test code = MCHC) 33.4 g/dL 32. 0-36.0 ABSOLUTE NEUT (AUTO) (test code = NE#) 2.6 10 3/uL 1.7-8.2 RED BLOOD COUNT (test code = RBC) 4.44 10 6/uL 3.72-5.28 ABSOLUTE BASOPHILS # (AUTO) (test code = BA#) 0.0 10 3/uL 0. 0-0.2 BASOPHILS % (AUTO) (test code = BA%) 0.5 % 0-2 SEGMENTED NEUTROPHILS % (AUTO) (test code = 55.6 % 42-7 8 SEG%) MEAN CORPUSCULAR HEMOGLOBIN (test code = MCH) 28.1 pg 27 .0-33.4 ABSOLUTE MONOCYTES (AUTO) (test code = MO#) 0.4 10 3/uL 0.1- 1.4 HEMATOCRIT (test code = HCT) 37.4 % 36.0-47.0 PLATELET COUNT (test code = PLT) 210 10 3/uL 150-450 WHITE BLOOD COUNT (test code = WBC) 4.8 10 3/uL 4.0-10.5 EOSINOPHILS % (AUTO) (test code = EO%) 2.0 % 0-6 VITAMIN B12\[id number] 14:47:00 Test Item Value Reference Range Comments VITAMIN B12 (test code = VB12E) 368.0 pg/mL 239-931 VITAMIN B1 (THIAMINE)\[id number] 14:47:00 Test Item Value Reference Range Comments VITAMIN B1 (THIAMINE) (test code = VITB1) 75.8 nmol/L 66.5-2 00.0 BV/VAGINITIS PANEL DNA [id number] 09:03:00SEE NOTEVITAMIN [id number] 15:52:24 Test Item Value Reference Range Comments Vitamin B12 (test code = 2132-9) 391 pg/mL 213-816 COMPREHENSIVE METABOLIC [id number] 15:27:45 Test Item Value Reference Range Comments Sodium (test code = 2951-2) 142 mEq/L 136- 145 mEq/L Potassium (test code = 2823-3) 3.4 mEq/L 3.4- 4.4 mEq/L Chloride (test code = 5-0) 107 mEq/L 98- 107 mEq/L Bicarbonate (TCO2) (test code = 2027-9) 27 mEq/L 22- 29 m Eq/L Calcium (test code = 09075-6) 9.6 mg/dL 8.4-10.2 Glucose (test code = 2345-7) 84 mg/dL 70-108 BUN (test code = 3094-0) 8 mg/dL 7-19 Protein, Total (test code = 2885-2) 6.8 g/dL 6.4-8.3 Albumin (test code = 1751-7) 4.2 g/dL 3.5-5.2 Bilirubin, Total (test code = 1975-2) 0.5 mg/dL 0.1-1.2 Alkaline Phosphatase (test code = 69 U/L 40-150 6768-6) AST (SGOT) (test code = 1920-8) 24 U/L <55 Creatinine (test code = 2160-0) 1.02 mg/dL 0.57-1.11 Anion Gap (calc.) (test code = 54352-8) 8 mEq/L 4- 12 mE q/L ALT (SGPT) (test code = 1742-6) 29 U/L 5-34 GFR, non-AA, (est.) (test code = 61 mL/Min/1.73 m2 >59 mL/Min/1. 73 m2 01940-8) GFR, AA, (est.) (test code = 98817-2) 74 mL/Min/1.73 m2 >59 mL/M in/1.73 m2 [id number] 15:27:45 Test Item Value Reference Range Comments Iron (test code = 2498-4) 60 ug/dL 50-170 CBC WITH [id number] 15:13:04 Test Item Value Reference Range Comments WBC (test code = 6690-2) 4.30 k/uL 4.5- 11.0 k/uL RBC (test code = 789-8) 4.51 M/uL 3.8- 5.2 M/uL Hemoglobin (test code = 718-7) 12.9 g/dL 12-16 Hematocrit (calc.) (test code = 4544-3) 38.7 % 35-47 MCV (test code = 787-2) 86 fL 80-100 MCH (test code = 785-6) 28.6 pg 26-34 MCHC (calc.) (test code = 786-4) 33.3 g/dL 32-36 RDW (test code = 788-0) 13.8 % <14.5 Platelet (test code = 777-3) 206 k/uL 150- 440 k/uL Mean Platelet Volume (test code = 31991-8) 8.3 fL 7.4-1 0.6 Neutrophil (%) (test code = 26479-9) 53 % Lymphocyte (%) (test code = 736-9) 35 % Monocyte (%) (test code = 5905-5) 10 % Eosinophil (%) (test code = 713-8) 2 % Basophil (%) (test code = 706-2) 1 % Neutrophil (#) (test code = 94768-4) 2.30 k/uL 1.8- 7.7 k/ uL Lymphocyte (#) (test code = 731-0) 1.50 k/uL 1.0- 4.8 k/uL Monocyte (#) (test code = 742-7) 0.40 k/uL 0.0- 0.8 k/uL Eosinophil (#) (test code = 711-2) 0.10 k/uL 0.0- 0.5 k/uL Basophil (#) (test code = 704-7) 0.00 k/uL 0.0- 0.2 k/uL Lab Interpretation (test code = 22704-7) Abnormal XRAY GI [id number] 10:43:00IMPRESSION: Status post gastric sleeve procedure. No leak or obstruction. Contrast passes easily from the esophagus through the stomach into the duodenum. Reading Doctor: Meng Purdy Electronic Signature by: Meng Purdy Procedure(s): XRAY GI W/O Clinical History:s/p sleeve and hiatal hernia repair, r/o leak and evaluate anatomys/p sleeve and hiatal hernia repair, r/o leak and evaluate anatomy Findings:Water-soluble upper GI series was performed. The esophagus appears normal. Patient status post gastric sleeve. No evidence of leak or obstruction. Interface, Radresults_Incoming - 05/02/2018 10:46 AM EST Procedure(s): XRAY GI W/O Clinical History: s/p sleeve and hiatal hernia repair, r/o leak and evaluate anatomy s/p sleeve and hiatal hernia repair, r/o leak and evaluate anatomy Findings: Water- soluble upper GI series was performed. The esophagus appears normal. Patient status post gastric sleeve. No evidence of leak or obstruction. IMPRESSION IMPRESSION: Status post gastric sleeve procedure. No leak or obstruction. Contrast passes easily from the esophagus through the stomachinto the duodenum. Reading Doctor: Meng Purdy Electronic Signature by: Monica Purdy WITH [id number] 05:50:54 Test Item Value Reference Range Comments WBC (test code = 6690-2) 13.60 k/uL 4.5- 11.0 k/uL RBC (test code = 789-8) 4.42 M/uL 3.8- 5.2 M/uL Hemoglobin (test code = 718-7) 13.0 g/dL 12-16 Hematocrit (calc.) (test code = 38.1 % 35-47 4544-3) MCV (test code = 787-2) 86 fL 80-100 MCH (test code = 785-6) 29.3 pg 26-34 MCHC (calc.) (test code = 34.1 g/dL 32-36 786-4) RDW (test code = 788-0) 14.1 % <14.5 Platelet (test code = 777-3) 315 k/uL 150- 440 k/uL Mean Platelet Volume (test code 8.5 fL 7.4-10.6 = 67634-0) Neutrophil (%) (test code = 83 % 99561-2) Lymphocyte (%) (test code = 9 % 736-9) Monocyte (%) (test code = 4 % 5905-5) Eosinophil (%) (test code = 3 % 713-8) Basophil (%) (test code = 1 % 706-2) Neutrophil (#) (test code = 11.30 k/uL 1.8- 7.7 k/uL 14208-9) Lymphocyte (#) (test code = 1.30 k/uL 1.0- 4.8 k/uL 731-0) Monocyte (#) (test code = 0.50 k/uL 0.0- 0.8 k/uL 742-7) Eosinophil (#) (test code = 0.40 k/uL 0.0- 0.5 k/uL 711-2) Basophil (#) (test code = 0.10 k/uL 0.0- 0.2 k/uL 704-7) Band (est.) (test code = <10% <10 % 25938-2) RBC Morphology (test code = NO SIGNIFICANT RBC 6742-1) MORPHOLOGIC ABNORMALITIES SEEN Lab Interpretation (test code = Abnormal 79753-7) GLUCOSE, POC (GLUCOMETER)2018-05-01 22:59:16 Test Item Value Reference Range Comments Glucose (poct) (test code = 2339-0) 166 mg/dL 70-100 Lab Interpretation (test code = 10373-3) Abnormal TYPE & [id number] 17:51:22 Test Item Value Reference Range Comments PRODUCT CODE (test code = COMPONENT GROUP FOR RED CELLS 933-2) Blood Type ABO, Rh (test code A POS = 882-1) Antibody Screen (test code = NEG 890-4) EKG 12 [id number] 18:54:00 Test Item Value Reference Range Comments EKG Text (test code = [facility]ACED [facility] - [facility] 784143) [facility] ECG -Sinus rhythmnormal P axis, V-rate 60-99Reading PhysicianChristopher Cayetano Luna [id number] Heart Rate (test code = 60 BPM BPM 057895) P [place] (test code = 148649) 43 degrees degrees I-40 [place] (test code = 22 degrees degrees 109437) T-40 [place] (test code = 77 degrees degrees 833345) QRS [place] (test code = 60 degrees degrees 251371) ST [place] (test code = -13 degrees degrees 107485) T Wave [place] (test code = 27 degrees degrees 441028) HEMOGLOBIN A1C (GLYCOSYLATED)2018-02-22 12:52:45 Test Item Value Reference Range Comments Hemoglobin A1c (test code = 5.9 % 4.3-5.7 (NOT E) This assay has been 4548-4) cleared by the F DA to be used as an aid i n the diagnosis of yesenia betes and in identifying shreya ents who may be at risk for d eveloping diabetes. The th reshold for diagnosis of yesenia betes is an HA1c result > or = 6.5%. Glucose, estimated average 123 mg/dL (test code = 53052-2) Lab Interpretation (test code = Abnormal 27858-5) XRAY CHEST 2 [id number] 12:25:00Impression: 1. No evidence of acute cardiopulmonary disease. 2. Mild cardiomegaly. Reading Doctor: Braulio Mcnally Electronic Signature by: Braulio Mcnally CHEST RADIOGRAPHS, PA AND LATERAL History: Morbid obesity. Preoperative for bariatric surgery. Comparison: None. Limitation: Large body habitus.Findings: The cardiopericardial silhouette is mildly enlarged. Mediastinal contours are otherwise unremarkable. The lungs are clear. There is no pneumothorax or pleural effusion. The imaged upper abdomen is unremarkable. The bony thorax is intact. Interface, Radresults_Incoming - 02/22/2018 12:28 PM EST CHEST RADIOGRAPHS, PA AND LATERAL History: Morbid obesity. Preoperative for bariatric surgery.Comparison: None. Limitation: Large body habitus. Findings: The cardiopericardial silhouette is mildly enlarged. Mediastinal contours are otherwise unremarkable. The lungs are clear. There is no pneumothorax or pleural effusion. The imaged upper abdomen is unremarkable. The bony thorax is intact. IMPRESSION Impression: 1. No evidence of acute cardiopulmonary disease. 2. Mild cardiomegaly. Reading Doctor: Braulio Mcnally Electronic Signature by: Braulio McnallyT4, [id number] 12:14:26 Test Item Value Reference Range Comments T4 (Thyroxine), Free (test code = 3024-7) 0.81 ng/mL 0.7-1. 48 [id number] 12:14:26 Test Item Value Reference Range Comments TSH (test code = 89683-9) 1.38 uIU/mL 0.35- 4.94 uIU/mL COMPREHENSIVE METABOLIC [id number] 12:00:07 Test Item Value Reference Range Comments Sodium (test code = 2951-2) 139 mEq/L 136- 145 mEq/L Potassium (test code = 2823-3) 3.9 mEq/L 3.5- 5.0 mEq/L Chloride (test code = 5-0) 106 mEq/L 98- 107 mEq/L Bicarbonate (TCO2) (test code = 2027-9) 26 mEq/L 22- 29 m Eq/L Calcium (test code = 45558-8) 9.5 mg/dL 8.4-10.2 Glucose (test code = 2345-7) 100 mg/dL 70-108 BUN (test code = 3094-0) 12 mg/dL 7-19 Protein, Total (test code = 2885-2) 7.1 g/dL 6.4-8.3 Albumin (test code = 1751-7) 4.4 g/dL 3.5-5.2 Bilirubin, Total (test code = 1975-2) 0.5 mg/dL 0.1-1.2 Alkaline Phosphatase (test code = 76 U/L 40-150 6768-6) AST (SGOT) (test code = 1920-8) 24 U/L <55 Creatinine (test code = 2160-0) 0.98 mg/dL 0.57-1.11 Anion Gap (calc.) (test code = 59182-6) 7 mEq/L 4- 12 mE q/L ALT (SGPT) (test code = 1742-6) 26 U/L 5-34 GFR, non-AA, (est.) (test code = 64 mL/Min/1.73 m2 >59 mL/Min/1. 73 m2 84404-5) GFR, AA, (est.) (test code = 87400-3) 78 mL/Min/1.73 m2 >59 mL/M in/1.73 m2 LIPID [id number] 12:00:07 Test Item Value Reference Range Comments Cholesterol, Total (test code = 178 mg/dL REFERENCE RANGES: 2093-3) CLAUDIA RABLE:<2 00 mg/dL BORDERL INE HIGH: 200-239 mg/dL HIGH: >239 mg/dL Triglycerides (test code = 73 mg/dL <150 2571-8) Cholesterol, HDL (test code = 48 mg/dL 40-60 RE FERENCE RANGES: 2085-9) LOW:<40 mg/d L HIGH: >=60 mg/dL Cholesterol, LDL (test code = 115 mg/dL RE FERENCE RANGES: 43287-9) OPTIMAL:<100 mg/dL NEAR OR ABOVE OPTIMAL : 100-129 mg/dL BORDERLINE HIGH: 130-159 mg /dL HIGH: 160-1 89 mg/dL VERY HIGH: >=190 mg/d L [id number] 12:00:07 Test Item Value Reference Range Comments PreAlbumin (test code = 80539-8) 24.0 mg/dL 16-38 URINALYSIS, [id number] 11:54:57 Test Item Value Reference Range Comments Appearance, urine (test code = 5767-9) CLEAR CLEAR^GALEN AR Color, urine (test code = 5778-6) YELLOW YEL^YELLOW Specific [place], urine (test code = 5811-5) 1.020 1.0 05-1.030 pH, urine (test code = 5803-2) 5.5 4.5-8.0 Protein, urine (test code = 5804-0) NEG NEG^NEG Glucose, urine (test code = 5792-7) NEG NEG^NEG Ketones, urine (test code = 5797-6) NEG NEG^NEG Hemoglobin, urine (test code = 5794-3) TRACE NEG^NEG Urobilinogen, urine (test code = 83646-8) NORM NORM^N ORM Bilirubin, urine (test code = 5770-3) NEG NEG^NEG Nitrites, urine (test code = 5802-4) NEG NEG^NEG Leukocyte Esterase, urine (test code = 5799-2) NEG N EG^NEG RBC, urine (test code = 13210-9) 1-4 0 /HPF WBC, urine (test code = 5821-4) 1-4 0 /HPF Epithelial Cells, urine (test code = 5787-7) NONE SEEN /HP F Bacteria, urine (test code = 33641-7) NONE SEEN NNSN^NONE SEEN Lab Interpretation (test code = 38180-2) Abnormal PT (PROTHROMBIN TIME) WITH [id number] 11:44:59 Test Item Value Reference Range Comments PT (test code = 5902-2) 11.5 sec 10.2- 12.9 sec INR (test code = 6301-6) 1.0 INR, Therapeutic Range (test code = STD THER RANGE 2-3 674902) [id number] 11:44:59 Test Item Value Reference Range Comments aPTT (test code = 94347-1) 38.1 sec 25.1- 36.5 sec Lab Interpretation (test code = 36789-5) Abnormal MARC'S [id number] 11:37:38 Test Item Value Reference Range Comments Marc's Test (test code = 16722-6) NORM Site of Collection (test code = 63930-5) RIGHT RADIAL CBC WITH [id number] 11:36:47 Test Item Value Reference Range Comments WBC (test code = 6690-2) 5.10 k/uL 4.5- 11.0 k/uL RBC (test code = 789-8) 4.74 M/uL 3.8- 5.2 M/uL Hemoglobin (test code = 718-7) 13.8 g/dL 12-16 Hematocrit (calc.) (test code = 4544-3) 40.3 % 35-47 MCV (test code = 787-2) 85 fL 80-100 MCH (test code = 785-6) 29.0 pg 26-34 MCHC (calc.) (test code = 786-4) 34.2 g/dL 32-36 RDW (test code = 788-0) 14.0 % <14.5 Platelet (test code = 777-3) 240 k/uL 150- 440 k/uL Mean Platelet Volume (test code = 33279-6) 7.0 fL 7.4-1 0.6 Neutrophil (%) (test code = 95158-7) 55 % Lymphocyte (%) (test code = 736-9) 34 % Monocyte (%) (test code = 5905-5) 9 % Eosinophil (%) (test code = 713-8) 2 % Basophil (%) (test code = 706-2) 1 % Neutrophil (#) (test code = 89141-4) 2.80 k/uL 1.8- 7.7 k/ uL Lymphocyte (#) (test code = 731-0) 1.70 k/uL 1.0- 4.8 k/uL Monocyte (#) (test code = 742-7) 0.50 k/uL 0.0- 0.8 k/uL Eosinophil (#) (test code = 711-2) 0.10 k/uL 0.0- 0.5 k/uL Basophil (#) (test code = 704-7) 0.00 k/uL 0.0- 0.2 k/uL Lab Interpretation (test code = 52163-9) Abnormal BLOOD GAS, [id number] 11:35:02 Test Item Value Reference Range Comments pCO2, arterial (test code = 2018-) 41 mm Hg 31- 42 mm Hg pH, arterial (test code = 2744-1) 7.39 7.37-7.47 pO2, arterial (test code = 2703-7) 82 mm Hg 80- 90 mm Hg Bicarbonate, arterial (calc.) (test code = 24 mmol/L 2025-06) O2 Saturation, arterial (test code = 2708-6) 96 % 94- 97 Base DEFICIT, arterial (calc.) (test code = 0.3 mmol/L 0-3 1924-7) FIO2 (L/min) (test code = 3151-8) 21.0 L Hepatitis B Surface Antibody, [id number] 00:01:00 Test Item Value Reference Range Comments Hepatitis B Surface Ab, Quant (test code = <5.0 mIU/mL 388416) Hepatitis B Surface Ab, Quant (test code = <5.0 mIU/mL 5214158) Varicella-Zoster Virus Ab (IgG)2017-05-19 00:01:00 Test Item Value Reference Range Comments Varicella-Zoster Virus Ab (IgG) (test code = 3073.00 Index <13 5.00 885185) Measles, Mumps, Rubella (MMR) [id number] 00:01:00 Test Item Value Reference Range Comments Mumps Virus Antibody (IgG) (test code = 042452) <9.00 AU/mL <9.00 Measles Antibody (IgG) (test code = 973500) 139.00 AU/mL <25. 00 Rubella Antibody (IgG) (test code = 092728) 7.59 Index <0.9 0 Quantiferon(R)-TB [id number] 00:01:00 Test Item Value Reference Range Comments TB-Nil (test code = 456523) 0.01 IU/mL CBC NO Diff (Complete Blood Count)2017-05-11 00:01:00 Test Item Value Reference Range Comments RDW (test code = 338316) 14.3 % 11.0-15.0 MCV (test code = 685283) 85.6 fL 80.0-100.0 Platelet Count (test code = 151085) 204 K/uL 140-400 RBC (test code = 535694) 4.52 MIL/uL 3.80-5.10 MPV (test code = 382581) 8.8 fL 7.5-12.5 Hematocrit (test code = 337680) 38.7 % 35.0-45.0 MCHC (test code = 003390) 33.3 g/dL 32.0-36.0 WBC (test code = 379587) 2.6 K/uL 3.8-10.8 Hemoglobin (test code = 924331) 12.9 g/dL 11.7-15.5 MCH (test code = 077225) 28.5 pg 27.0-33.0 [id number] 00:01:00 Test Item Value Reference Range Comments TSH (test code = 816787) 1.37 mIU/L CP Thyroglobulin Antibody [id number] 00:01:00 Test Item Value Reference Range Comments Thyroid Peroxidase (TPO) Ab (test code = 662476) 13 IU/mL <9 Thyroglobulin (test code = 178810) 9.9 ng/mL Thyroglobulin Antibody (test code = 863796) <1 IU/mL <2 T4 Free (FT4)2017-05-11 00:01:00 Test Item Value Reference Range Comments Free T4 (test code = 996323) 1.0 ng/dL 0.8-1.8 [id number] 08:55:00 Test Item Value Reference Range Comments TSH (test code = 404241) 1.35 mIU/L CBC NO Diff (Complete Blood Count)2016-09-15 08:55:00 Test Item Value Reference Range Comments RDW (test code = 833365) 15.6 % 11.0-15.0 MPV (test code = 664213) 8.2 fL 7.5-12.5 MCH (test code = 535446) 28.9 pg 27.0-33.0 WBC (test code = 153932) 3.8 K/uL 3.8-10.8 Hemoglobin (test code = 989644) 13.4 g/dL 11.7-15.5 Platelet Count (test code = 761080) 203 K/uL 140-400 Hematocrit (test code = 070272) 39.8 % 35.0-45.0 MCHC (test code = 182199) 33.7 g/dL 32.0-36.0 RBC (test code = 024651) 4.63 MIL/uL 3.80-5.10 MCV (test code = 311399) 86.0 fL 80.0-100.0 CMP with Estimated [id number] 08:55:00 Test Item Value Reference Range Comments Alkaline Phosphatase (test code = 682122) 54 U/L 33-115 Est GFR, NonAfrican [place] Islander (test code = 323378) 67 mL/min >=60 Potassium (test code = 105281) 4.3 mmol/L 3.5-5.3 Chloride (test code = 961589) 107 mmol/L 98-110 Glucose (test code = 846793) 104 mg/dL 65-99 Albumin (test code = 220302) 4.0 g/dL 3.6-5.1 Bilirubin, Total (test code = 909220) 0.5 mg/dL 0.2-1.2 CO2 (test code = 110578) 21 mmol/L 20-31 Est GFR, (test code = 474593) 77 mL/min > =60 Calcium (test code = 332221) 9.1 mg/dL 8.6-10.2 Creatinine (test code = 758433) 1.08 mg/dL 0.50-1.10 BUN (test code = 313060) 12 mg/dL 7-25 Total Protein (test code = 298365) 6.6 g/dL 6.1-8.1 Sodium (test code = 921338) 140 mmol/L 135-146 AST/SGOT (test code = 514092) 18 U/L 10-30 ALT/SGPT (test code = 495199) 20 U/L 6-29 Lipid [id number] 08:55:00 Test Item Value Reference Range Comments Cholesterol (test code = 750722) 155 mg/dL 125-200 VLDL Cholesterol (Calc) (test code = 979195) 12 mg/dL <30 Total Chol/HDL Ratio (test code = 841879) 3.4 Ratio <=5.0 Triglycerides (test code = 264228) 60 mg/dL <150 LDL Cholesterol (Calc) (test code = 108806) 97 mg/dL <130 HDL Cholesterol (test code = 927436) 46 mg/dL >=46 Hemoglobin A1C\S\2016-09-15 08:15:00 Test Item Value Reference Range Comments HgbA1C, Fingerstick (test code = 4548-4) 5.4 % 4-5.6 Assessments Condition Name Status Diagnosis Date Treating Clinici an Dysuria Active Other specified noninflammatory Active disorders of vagina Prediabetes Active Contact w and exposure to infect w a Active sexl mode of transmiss Panniculitis Active 2019-06-10 14:30:02 Excessive and redundant skin and Active subcutaneous tissue Candidiasis of skin and nail Active 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 Body mass index (BMI) 27.0-27.9, adult Active Bariatric surgery status Active Bariatric surgery status Active Nausea with vomiting, unspecified Active Headache Active Viral infection, unspecified Active Body mass index (BMI) 40.0-44.9, adult Active Localized swelling, mass and lump, Active right upper limb Contact w and exposure to unsp Active communicable disease Body mass index (BMI) 40.0-44.9, adult Active Encounter for immunization Active Morbid obesity (HCC) Active Body mass index 40.0-44.9, adult (HCC) Active Morbid (severe) obesity due to excess Active calories Body mass index (BMI) 40.0-44.9, adult Active Morbid obesity (HCC) Active Body mass index 40.0-44.9, adult (HCC) Active Morbid (severe) obesity due to excess Active calories Body mass index (BMI) 40.0-44.9, adult Active Advance Directives Directive Decision Effective Date Termination Date Comments Patient has advance care planning N/A documents on file. For more information, please contact: [facility] [address] [place] [id number] Encounters Start End Encounter Admission Attending Care Care Encounter Date/Time Date/Time Type Type Clinicians Facility Department ID 2019-08-21 2019-08-21 Outpatient [facility] 4 [id number] 08:45:00 08:45:00 Albin Garcia [id number] s [id number] and [id number] [facility], 2019-06-05 2019-06-05 Jaren Valentin [place] 2422 [id number] 00:00:00 00:00:00 [place], Surgical Surgical [id number] MD: [address] [facility], [address], [facility] [address], Ph. 2019-04-03 2019-04-03 Outpatient Hailey, [facility] [id number] 09:00:00 09:00:00 Albin Garcia [id number] s [id number] and [id number] [facility]ial ty Clinic, 2018-06-07 2018-06-07 Outpatient [facility] [id number] 11:43:25 23:59:00 2018-06-07 2018-06-07 Outpatient Jefe SHARIF [facility] [id number] 11:43:25 23:59:00 MATTHEW 2018-05-01 2018-05-02 Inpatient [facility] [id number] 08:44:00 17:34:00 2018-05-01 2018-05-02 Inpatient R KOLE [facility] [id number] 08:44:00 17:34:00 MATTHEW 2018-04-17 2018-04-17 Outpatient [facility] [id number] 10:45:00 23:59:00 2018-04-07 2018-04-07 Outpatient KOLE [facility] [id number] 14:43:43 14:43:43 MATTHEW 2018-03-09 2018-03-09 Outpatient Jefe SHARIF [facility] [id number] 04:00:00 04:00:00 MATTHEW 2018-02-28 2018-02-28 Outpatient [facility] [id number] 10:42:00 11:01:00 2018-02-22 2018-02-22 Outpatient [facility] [id number] 11:00:00 23:59:00 2018-02-22 2018-02-22 Outpatient Jefe SHARIF [facility] [id number] 11:00:00 23:59:00 [place] 2018-02-22 2018-02-22 Outpatient [facility]ANESHA [facility] [id number] 10:44:56 10:59:00 2018-02-22 2018-02-22 [facility] [id number] 10:44:56 10:59:00 [place] 2018-02-14 2018-02-14 Outpatient [facility]ANESHA [facility] [id number] 04:00:00 04:00:00 2018-02-14 2018-02-14 Outpatient [facility]fe [facility] [id number] 04:00:00 04:00:00 [place] 2017-08-19 2017-08-19 [id number] 13:10:00 13:10:00 Juli Children [id number] s [id number] and [id number] [facility] Clinic, MARII 2017-02-02 2017-02-02 Outpatient [facility] B5 [id number] 11:00:00 11:00:00 Nikolai Children [id number] s [id number] and [id number] [facility] [place] Payers Payer Name Policy Type Policy Number Effective Date Expiration D ate [place] xxxxxxxxxx ACCESSxxxxxxxxxxEffective for all [phone] [place] ACCESS [id number] Plan of Treatment Planned Activity Planned Date Details Comments Future Scheduled Test [code = ] Future Scheduled Test [code = ] Future Scheduled Test [code = ] Future Scheduled Test [code = ] Future Scheduled Test [code = ] Future Scheduled Test [code = ] Instructions Attachments The following attach ments cannot be sent through Care Ever ywhere. Bariatric Surgery, After: The Fi rst 6 Weeks (ESTONIAN) Bariatric Surger y, Making it Work for You (ESTONIAN) Enoxap trey injection (ESTONIAN) Acetaminophe n; Hydrocodone oral solution (ENGLI ) Social History Smoking Status Start Date Stop Date Never Smoker Vital Signs Vital Name Observation Time Observation Value Comments BP Diastolic 2019-06-05 00:00:00 80 mm[Hg] Height 2019-06-05 00:00:00 69 [in_i] BMI (Body Mass Index) 2019-06-05 00:00:00 27.6 kg/m2 BP Systolic 2019-06-05 00:00:00 142 mm[Hg] Body Weight 2019-06-05 00:00:00 187 [lb_av] Systolic blood pressure 2018-05-02 16:00:00 126 mm[Hg] Diastolic blood pressure 2018-05-02 16:00:00 64 mm[Hg] Heart rate 2018-05-02 16:00:00 75 /min Body temperature 2018-05-02 16:00:00 36.89 Jackelyn Respiratory rate 2018-05-02 16:00:00 16 /min Oxygen saturation in Arterial blood by 2018-05-02 16:00:00 100 % Pulse oximetry Body height 2018-05-01 09:00:00 175.3 cm Body weight Measured 2018-05-01 09:00:00 177.901 kg BMI 2018-05-01 09:00:00 57.92 kg/m2 Body height 2018-04-17 11:15:00 176.5 cm Body weight Measured 2018-04-17 11:15:00 136.079 kg BMI 2018-04-17 11:15:00 43.67 kg/m2 Hospital Discharge Instructions 1. Panniculitis Discussion Note: None recorded. Patient educational handouts: No information available.Attachments The following attachments cannot be sent through Care Everywhere. Bariatric Surgery, After: The First 6 Weeks (ESTONIAN) Bariatric Surgery, Making it Work for You (ESTONIAN) Enoxaparin injection (ESTONIAN) Acetaminophen; Hydrocodone oral solution (ESTONIAN) in this encounter
== END 2020-04-27 22:14 | disposition home or self-care (01) ==
LOC: ER 17:56
DX: J02.9 Acute pharyngitis, unspecified (principal); Z20.822 Contact with and (suspected) exposure to COVID-19
CPT/HCPCS: 99283; 36415; 87070; 87880; 87635; 87804; C9803